=== PATIENT | male | born 1935 | race Caucasian/White ===

== ENCOUNTER 2017-08-26 11:42 | Outpatient (CLI) | payer MEDICARE, OTHER ==
--- NOTE | 2017-08-26 14:04 | CT Report ---
DATE OF SERVICE: 08/26/2017 CT OF THE ABDOMEN AND PELVIS WITHOUT CONTRAST: 08/26/2017 CLINICAL INDICATION: Pain. TECHNIQUE: Axial CT images of the abdomen and pelvis were obtained without oral or intravenous contrast, according to renal calculus protocol. No previous CT is available for comparison. FINDINGS: Limited evaluation of the lung bases is unremarkable. ABDOMEN: The kidneys demonstrate no evidence of nephrolithiasis or hydronephrosis. No hydroureter is seen. Multiple calcified granulomas are noted in the spleen and liver. No bowel dilatation, free gas, or free fluid is present. The pancreas and adrenal glands appear unremarkable. The gallbladder is not dilated. No abdominal adenopathy is appreciated. PELVIS: Postoperative changes of prostatectomy are present. The urinary bladder appears unremarkable. No distal hydroureter or ureterolithiasis is seen. Osseous structures demonstrate degenerative changes. IMPRESSION: NO EVIDENCE OF NEPHROLITHIASIS OR HYDRONEPHROSIS. In accordance with CT protocol optimization, one or more of the following dose reduction techniques were utilized for this exam: automated exposure control, adjustment of mA and/or KV based on patient size, or use of iterative reconstructive technique. TD: 08/26/2017 15:02
== END 2017-08-26 11:43 | disposition home or self-care (01) ==
LOC: DI 11:42
PROVIDERS: ATTEND Urology
DX: N20.0 Calculus of kidney (principal)
CPT/HCPCS: 74176

== ENCOUNTER 2017-12-10 14:17 | Outpatient (CLI) | payer MEDICARE, OTHER | END 2017-12-10 14:18 | disposition critical access hospital (66) | LOC: EMS 14:17 | PROVIDERS: ATTEND Surgery | DX: R53.1 Weakness (principal); R05 Cough; R41.0 Disorientation, unspecified; R50.9 Fever, unspecified | CPT/HCPCS: A0425; A0429 ==

== ENCOUNTER 2017-12-10 14:40 | Inpatient (IN) | payer MEDICARE, OTHER ==
[2017-12-10] MEDS ORDERED: SODIUM CHLORIDE 0.9% 1,000 ML IV ONE (14:51)
--- NOTE | 2017-12-10 14:53 | ED Physician Documentation ---
History of Present Illness - Stated complaint Stated Complaint: COUGH/WEAK - Chief complaint Chief Complaint: General - History obtained from History obtained from: Patient, EMS - History of Present Illness Timing: Other (82-year-old gentleman with potential history of seizures on Dilantin, but this is nebulous per his history. He has had a week's worth of cough, but since last night he could not sleep at all Because he was spitting out sputum all night and this morning became generally weak and could not ambulate. He denies any pain except for chronic back pain and he had some heel pain on the right yesterday which is gone. He denies fevers or chills, he is just weak. There is no shortness of breath or abdominal pain with this. No headache.) Review of Systems Ten Systems: 10 systems reviewed and negative Constitutional: reports: Fatigue. denies: Fever, Chills Nose: denies: Rhinorrhea / runny nose Cardiac: denies: Chest pain / pressure Respiratory: reports: Cough. denies: Dyspnea GI: denies: Abdominal Pain PD PAST MEDICAL HISTORY - Past Medical History Cardiovascular: None Respiratory: Sleep apnea, Other Endocrine/Autoimmune: None GI: GERD : Benign prostate hypertrophy, Frequency, Other HEENT: Chronic hearing loss, Other Psych: None Musculoskeletal: Osteoarthritis, Scoliosis, Chronic back pain Derm: Eczema - Past Surgical History General: Appendectomy, Colonoscopy Ortho: Other HEENT: Tonsil/Adenoidectomy - Present Medications Home Medications: Ambulatory Orders Medication Instructions Recorded Confirmed Acetaminophen 650 mg PO Q6H PRN 01/16/15 01/19/15 Aspirin [Aspir 81] 325 mg PO DAILY 01/16/15 01/16/15 Calcium Carbonate/Vitamin D3 1 tab PO BID 01/16/15 01/19/15 [Calcium 500 + Vit D 200 Tablet] Omeprazole 20 mg PO BID 01/16/15 01/19/15 Phenytoin [Dilantin] 100 mg PO DAILY 01/16/15 01/19/15 Bisacodyl [Dulcolax] 12/10/17 Trospium Chloride 12/10/17 - Allergies Allergies/Adverse Reactions: Allergies Allergy/AdvReac Type Severity Reaction Status Date / Time alendronate sodium Allergy Severe Rash Verified 01/06/16 15:15 [From Fosamax] Penicillins Allergy Intermediate Rash/Itchin Verified 01/06/16 15:15 g hydrocodone AdvReac Intermediate Nausea Verified 01/06/16 15:15 - Social History Does the pt smoke?: No Smoking Status: Never smoker Does the pt drink ETOH?: No Does the pt have substance abuse?: No - Family History Family history: reports: Non contributory - Immunizations Immunizations are current?: Yes PD ED PE NORMAL - Vitals Vital signs reviewed: Yes - General General: Alert and oriented X 3, No acute distress, Other (He is very weak, he is at least a 1 person assist to sit him up and listen to his lungs.) - HEENT HEENT: PERRL, EOMI, Other (Poor dentition, dry mucous membranes) - Neck Neck: Supple, no meningeal sign, No bony TTP - Cardiac Cardiac: RRR, No murmur - Respiratory Respiratory: No respiratory distress, Clear bilaterally - Abdomen Abdomen: Normal bowel sounds, Soft, Non tender - Derm Derm: Normal color, Warm and dry - Extremities Extremities: No edema, No calf tenderness / cord - Neuro Neuro: Alert and oriented X 3, Normal speech Eye Opening: Spontaneous Motor: Obeys Commands Verbal: Oriented GCS Score: 15 Results - Vitals Vitals: Vital Signs - 24 hr 12/10/17 12/10/17 14:43 16:20 Temperature 37.2 C 37.0 C Heart Rate 88 79 Respiratory 18 15 Rate Blood Pressure 139/69 H 117/64 O2 Saturation 99 94 Oxygen O2 Source Room air - EKG (time done) 1523 Rate: Rate (enter#) (80) Rhythm: NSR [place]: Normal Intervals: Normal [place] QRS: LVH Ischemia: Normal ST segments Computer interpretation: Agree with computer - Labs Labs: Laboratory Tests 12/10/17 12/10/17 12/10/17 15:02 15:02 15:02 WBC 17.6 H RBC 4.43 L Hgb 12.3 L Hct 38.0 L MCV 85.8 MCH 27.8 MCHC 32.4 RDW 15.7 H Plt Count 170 MPV 7.7 Neut # Not Reportable Lymph # Not Reportable Pepin # Not Reportable Eos # Not Reportable Baso # Not Reportable Absolute Nucleated RBC Not Reportable Total Counted 100 Band Neuts % (Manual) 17 H Abnorm Lymph % (Manual) 0 Nucleated RBC % Not Reportable Neutrophils # (Manual) 16.2 H Lymphocytes # (Manual) 1.2 L Monocytes # (Manual) 0.2 Eosinophils # (Manual) 0.0 Basophils # (Manual) 0.0 Differential Comment MANUAL DIFFERENTIAL Manual Slide Review Indicated WBC Morphology NORMAL APPEARANCE Platelet Estimate NORMAL (130-450,000) Platelet Morphology NORMAL APPEARANCE RBC Morph Micro Appear 1+ POLYCHROMASIA Sodium 139 Potassium 3.3 L Chloride 102 Carbon Dioxide 27 Anion Gap 10.0 BUN 15 Creatinine 1.0 Estimated GFR (MDRD) 72 L Glucose 112 H Lactic Acid Calcium 8.4 L Magnesium 1.9 Total Bilirubin 0.8 AST 59 H ALT 18 Alkaline Phosphatase 60 Troponin I 0.04 Total Protein 6.2 L Albumin 3.7 Globulin 2.5 Albumin/Globulin Ratio 1.5 Lipase 20 L Urine Color Urine Clarity Urine pH Ur Specific Ward Urine Protein Urine Glucose (UA) Urine Ketones Urine Occult Blood Urine Nitrite Urine Bilirubin Urine Urobilinogen Ur Leukocyte Esterase Urine RBC Urine WBC Ur Squamous Epith Cells Amorphous Sediment Urine Bacteria Ur Microscopic Review Urine Culture Comments Phenytoin < 2.5 Influenza A (Rapid) Influenza B (Rapid) 12/10/17 12/10/17 12/10/17 15:07 15:10 16:13 WBC RBC Hgb Hct MCV MCH MCHC RDW Plt Count MPV Neut # Lymph # Pepin # Eos # Baso # Absolute Nucleated RBC Total Counted Band Neuts % (Manual) Abnorm Lymph % (Manual) Nucleated RBC % Neutrophils # (Manual) Lymphocytes # (Manual) Monocytes # (Manual) Eosinophils # (Manual) Basophils # (Manual) Differential Comment Manual Slide Review WBC Morphology Platelet Estimate Platelet Morphology RBC Morph Micro Appear Sodium Potassium Chloride Carbon Dioxide Anion Gap BUN Creatinine Estimated GFR (MDRD) Glucose Lactic Acid 2.1 Calcium Magnesium Total Bilirubin AST ALT Alkaline Phosphatase Troponin I Total Protein Albumin Globulin Albumin/Globulin Ratio Lipase Urine Color YELLOW Urine Clarity CLEAR Urine pH 7.5 Ur Specific Ward 1.010 Urine Protein TRACE Urine Glucose (UA) NEGATIVE Urine Ketones 15 H Urine Occult Blood SMALL H Urine Nitrite NEGATIVE Urine Bilirubin NEGATIVE Urine Urobilinogen 0.2 (NORMAL) Ur Leukocyte Esterase NEGATIVE Urine RBC 0-5 Urine WBC 0-3 Ur Squamous Epith Cells RARE Squamous Amorphous Sediment Moderate Urine Bacteria None Seen Ur Microscopic Review INDICATED Urine Culture Comments NOT INDICATED Phenytoin Influenza A (Rapid) Negative Influenza B (Rapid) Negative - Rads (name of study) 2v chest Radiology: EMP read contemporaneously (LLL PNA) PD MEDICAL DECISION MAKING - ED course ED course: 82-year-old gentleman with an acute illness marked by cough and sputum production and significant weakness. Lab work is notable for leukocytosis with bandemia and he has a left lower lobe pneumonia which is treated with Rocephin and Zithromax after blood cultures. His lactate is high normal but it is normal. Spoke with Dr. Zhou for admission at 5:04 PM. Departure - Departure Disposition: [facility] DC/Xfer Clinical Impression: Pneumonia Qualifiers: Pneumonia type: due to unspecified organism Laterality: left Lung location: lower lobe of lung Qualified Code(s): J18.1 - Lobar pneumonia, unspecified organism Condition: Stable
[2017-12-10 15:23] LABS: BASOPHILS % (AUTO) 0.3 %; HGB - HEMOGLOBIN 12.3 g/dL (14.0-18.0); LYMPHOCYTES % (AUTO) 3.1 %; MEAN CORPUSCULAR HEMOGLOBIN 27.8 pg (27.0-31.0); MEAN CORPUSCULAR HGB CONC 32.4 g/dL (32.0-36.0); MEAN CORPUSCULAR VOLUME 85.8 fL (80.0-94.0); MEAN PLATELET VOLUME 7.7 fL (7.4-11.4); MONOCYTES % (AUTO) 6.4 %; NEUTROPHILS % (AUTO) 90.2 %; PLT - PLATELET COUNT 170 10^3/uL (130-450); RED BLOOD COUNT 4.43 10^6/uL (4.70-6.10); RED CELL DISTRIBUTION WIDTH 15.7 % (12.0-15.0); WHITE BLOOD COUNT 17.6 x10^3/uL (4.8-10.8)
[2017-12-10 15:25] LABS: ABNORMAL LYMPHS % (MANUAL) 0 %
[2017-12-10 15:33] LABS: ALBUMIN 3.7 g/dL (3.2-5.5); ALBUMIN/GLOBULIN RATIO 1.5 (1.0-2.2); ALKALINE PHOSPHATASE 60 IU/L (42-121); ALT ALANINE AMINOTRANSFERASE 18 IU/L (10-60); AST ASPARTATE AMINOTRANSFERASE 59 IU/L (10-42); BILIRUBIN,TOTAL 0.8 mg/dL (0.2-1.0); BUN - BLOOD UREA NITROGEN 15 mg/dL (6-20); CALCIUM 8.4 mg/dL (8.5-10.3); CARBON DIOXIDE - CO2 27 mmol/L (21-32); CHLORIDE 102 mmol/L (101-111); GFR - MDRD 72 (>89); GLUCOSE 112 mg/dL (70-100); LIPASE 20 U/L (22-51); MAGNESIUM 1.9 mg/dL (1.7-2.8); SODIUM 139 mmol/L (135-145); TOTAL PROTEIN 6.2 g/dL (6.7-8.2)
[2017-12-10 15:44] LABS: BAND NEUTROPHILS % (MANUAL) 17 %; DIFFERENTIAL COMMENT MANUAL DIFFERENTIAL; LYMPHOCYTES # (MANUAL) 1.2 10^3/uL (1.5-3.5); LYMPHOCYTES % (MANUAL) 7 %; MONOCYTES # (MANUAL) 0.2 10^3/uL (0.0-1.0); NEUTROPHILS # (MANUAL) 16.2 10^3/uL (1.5-6.6); NEUTROPHILS % (MANUAL) 75 %; PLATELET ESTIMATE, MANUAL NORMAL (130-450,000) (NORMAL); PLATELET MORPHOLOGY NORMAL APPEARANCE (NORMAL); RBC MORPHOLOGY (MULTIPLE) 1+ POLYCHROMASIA (NORMAL)
[2017-12-10 15:59] LABS: PHENYTOIN (DILANTIN) < 2.5 ug/mL
[2017-12-10 16:24] LABS: BILIRUBIN,URINE NEGATIVE (NEGATIVE); GLUCOSE, URINE (UA) NEGATIVE (NEGATIVE); KETONES,URINE (UA) 15 mg/dL (NEGATIVE); LEUKOCYTE ESTERASE, URINE NEGATIVE (NEGATIVE); NITRITE,URINE NEGATIVE (NEGATIVE); OCCULT BLOOD,URINE SMALL (NEGATIVE); PH,URINE 7.5 PH (5.0-7.5); PROTEIN,URINE TRACE mg/dL (NEGATIVE); UROBILINOGEN,URINE 0.2 (NORMAL) E.U./dL (NORMAL)
[2017-12-10 16:27] LABS: CLARITY,URINE CLEAR (CLEAR)
[2017-12-10 16:40] LABS: BACTERIA,URINE None Seen /HPF (None Seen); RBC,URINE 0-5 /HPF (0-5); SQUAMOUS EPITHELIAL CELL,UR RARE Squamous (<= Few)
[2017-12-10 16:41] LABS: AMORPHOUS SEDIMENT,UR Moderate /LPF
--- NOTE | 2017-12-10 16:47 | XRAY Report ---
EXAM: CHEST RADIOGRAPHY EXAM DATE: 12/10/2017 04:30 PM. CLINICAL HISTORY: Cough, sputum. COMPARISON: 08/26/2017. TECHNIQUE: 2 views. FINDINGS: Lungs/Pleura: Left lower lobe consolidation. Lungs are otherwise clear. Mildly elevated right hemidia phragm. No pleural effusion or pneumothorax. Mediastinum: Heart and mediastinal contours are within normal limits. Other: None. IMPRESSION: Left lower lobe consolidation is most consistent with pneumonia. Consider radiographic fo llow-up after appropriate treatment. [facility] Referring Provider Line: [phone] SITE ID: [id number]
--- NOTE | 2017-12-10 16:47 | XRAY Preliminary Report ---
Exam: XR CHEST 2 VIEW X-RAY IMPRESSION: Left lower lobe consolidation is most consistent with pneumonia. Consider radiographic fo llow-up after appropriate treatment. [facility] SITE ID: [id number]
[2017-12-10] MEDS ORDERED: AZITHROMYCIN INJ 500 MG in SODIUM CHLORIDE 0.9% 250 ML IV STA (16:57)
[2017-12-10] MEDS ORDERED: cefTRIAXone 1 GM in SODIUM CHLORIDE 0.9% MINIBAG 100 ML IV STA (16:57)
[2017-12-10] MEDS ORDERED: ALBUTEROL NEB 2.5 MG/3 ML INH PRN (19:00)
--- NOTE | 2017-12-10 19:24 | HISTORY & PHYSICAL EXAMINATION ---
Chief Complaint - Chief Complaint Chief Complaint: cough, sob with severe weakness that fell on floor today, couldn't get up History of Present Illness - Admitted From Admitted From:: ER/Home via EMS - History Obtained From Records Reviewed: ER History obtained from: Dr. Galvan and patient, not here Exam Limitations: fatigue and deafness - History of Present Illness HPI Comment/Other: He tells me that he leads a pretty independent life. He works out in the yard, cooks for himself. Although he has been to his for close to 60 years they are not close. He loves her but does not like her very much. They live together in the same house but do not see very much of each other. He still drives. Denies any chronic lung problems or heart problems. He went to bed Thursday night, and all night long realized that he was producing a lot of phlegm. Was coughing heavily. Did not have the energy to get out of bed. Stayed awake all night long. Prior to Thursday he says he did not feel sick. He did not have fever, chills, sore throat, runny nose. He started realizing that it was getting harder and harder to even roll over. He felt weak, and could not sleep. He finally got up in the licensed midwife hours to go to the bathroom and slid to the floor. He did not fall he just felt like he did not have any strength. He was incontinent of stool, incontinent of urine. And again, because he sleeps in a separate bedroom from his , lay on the floor for 2-3 hours until he was able to get her attention. She called the ambulance and he was brought into the hospital. He was evaluated by Dr. Galvan and found to have a low-grade fever, elevated white cell count, a left lung pneumonia. 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 They said he had a seizure, and when he got to the hospital they told him he had a small stroke. This was in the 1970s) Endocrine/Autoimmune: reports: None GI: reports: GERD : reports: Benign prostate hypertrophy, Incontinence, Frequency, Other ( prostate cancer with prostatectomy. Use to see Dr. Quan then saw Dr. Kang in [place]. But Dr. Feliciano closed her office there and is now only out of [place] and he won't go that far. So it's been a while since he saw a Urologist.) HEENT: reports: Chronic hearing loss, Other (corrective lenses) Psych: reports: None Musculoskeletal: reports: Osteoarthritis, Scoliosis, Chronic back pain (MRI 2013 with facet arthropathy, disc disease) Derm: reports: Eczema MRSA Hx?: No - Past Surgical History General: reports: Appendectomy, Colonoscopy, Other (right inguinal hernia repair 12/2014) Ortho: reports: Carpal Tunnel surgery, Other HEENT: reports: Tonsil/Adenoidectomy - Family & Social History Family History Comment/Other: Dad in his 80s of old age. Mom at 88 of old age. One sister of pneumonia. One brother is 2 years younger than him and not healthy. He cannot say why he is not healthy just that is not healthy. One daughter who is healthy and has no problems with high blood pressure, diabetes, heart, thyroid or cancer. Living arrangement: At home Living Situation: With spouse/s.o. Social History Notes: He was born in [place]. From [place] he enrolled in air traffic control school with the [employer] and was then [place]. From there he went to [place] and works in the [employer] for a year. Went back to [place] then to [place] where he met his in 1962 Reenrolled in the , this time [employer]. Get out of the [employer] in May and when he retired they came to [facility]. He never smoked. Rarely drank. Never did recreational substance abuse. - Substance History Use: Uses substance without health or social issues: NONE Abuse: Recurrent use of substance despite neg consequences: NONE Dependence: Experiences withdrawal or developed tolerances: NONE - POLST Patient has POLST: No POLST Status: Full Code Meds/Allgy - Home Medications Home Medications: Ambulatory Orders Medication Instructions Recorded Confirmed Acetaminophen 650 mg PO Q6H PRN 01/16/15 12/10/17 Calcium Carbonate/Vitamin D3 1 tab PO BID 01/16/15 12/10/17 [Calcium 500 + Vit D 200 Tablet] Omeprazole 20 mg PO BID 01/16/15 12/10/17 Phenytoin [Dilantin] 100 mg PO DAILY 01/16/15 12/10/17 Aspirin EC [Ecotrin] 325 mg PO DAILY 12/10/17 12/10/17 Bisacodyl [Dulcolax] 5 mg PO DAILY PRN 12/10/17 12/10/17 Fluticasone [Flonase] 2 sprays GIO DAILY PRN 12/10/17 12/10/17 Loratadine [Claritin] 10 mg PO DAILY 12/10/17 12/10/17 Trospium Chloride 20 mg PO BID 12/10/17 12/10/17 - Allergies Allergies/Adverse Reactions: Allergies Allergy/AdvReac Type Severity Reaction Status Date / Time alendronate sodium Allergy Severe Rash Verified 01/06/16 15:15 [From Fosamax] Penicillins Allergy Intermediate Rash/Itchin Verified 01/06/16 15:15 g hydrocodone AdvReac Intermediate Nausea Verified 01/06/16 15:15 Review of Systems - Constitutional Constitutional: reports: Fatigue (just in the last day), Weakness, Poor appetite - Eyes Eyes: reports: Corrective lenses. denies: Pain, Irritation, Amaurosis - Ears, Nose & Throat Ears, Nose & Throat: reports: Hearing loss. denies: Tinnitus, Vertigo, Nasal pain, Nasal obstruction, Nasal congestion - Cardiovascular Cariovascular: denies: Irregular heart rate, Palpitations, Chest pain, Edema, Lightheadedness, Syncope - Respiratory Respiratory: reports: Cough (only since last noc), Sputum production (produces some every day, a lot, but really bad last night). denies: SOB at rest, SOB with exertion - Gastrointestinal Gastrointestinal: denies: Abdominal pain, Abdominal distention, Constipation, Diarrhea, Change in bowel habits, Rectal bleeding - Genitourinary Genitourinary: reports: Frequency, Urgency, Incontinence, Nocturia. denies: Hematuria, Flank pain, Urethral discharge, Sexual dysfunction - Musculoskeletal Musculoskeletal: reports: Back pain, Stiffness, Limited range of motion (back), Joint pain (in the morning he's stiff). denies: Muscle pain, Muscle aches, Muscle weakness, Gout - Neurological Neurological: reports: General weakness. denies: Focal weakness, Headache, Dizziness, Memory problems - Psychiatric Psychiatric: denies: Depression, Anxiety, Suicidal, Hallucinations - Endocrine Endocrine: denies: Polyuria, Polydypsia, Polyphagia, Intolerance to cold - Hematologic/Lymphatic Hematologic/Lymphatic: denies: Anemia, Bruising, Petechiae Exam - Vital Signs Reviewed Vital Signs: Yes Vital Signs: Vital Signs x48h Temp Pulse Pulse Resp BP BP Pulse Ox 12/10/17 19:08 37.8 C H 83 20 133/55 H 97 12/10/17 18:25 82 24 119/66 96 12/10/17 17:38 37.2 C 79 20 124/52 L 96 - Physical Exam General Appearance: positive: No acute distress, Alert, Other (gaunt, thin, deaf elderly male so weak has to rely on aides to rotate him in bed. Very circumferential historian. Takes a while for him to answer a question and will sometimes go back in history to being 17 and move forward.) Eyes Bilateral: positive: PERRL, EOMI ENT: positive: Dry mucous membranes, Other (partially lost his lower teeth) Neck: positive: No JVD, Lymphadenopathy (R), Lymphadenopathy (L). negative: Carotid bruit Respiratory: positive: Chest non-tender, No respiratory distress, Rhonchi (left lung), Other (dull left lung at base and does have egophony). negative: Wheezes , Rales Cardiovascular: positive: Regular rate & rhythm, Systolic murmur. negative: Gallop/S4, Friction rub Peripheral Pulses: positive: 2+ Abdomen: positive: Non-tender, No organomegaly, Nml bowel sounds, No distention Skin: positive: Warm, Dry, Other (all along his lower back and above his buttocks he has a ring of pink that goes across the spine. [place] band is like a belt. Nonblanchin, warm. It is where his urine soaked pants touched him as he lay in his bed, then the floor and then the ER until he came to us. Incontinent of both urine and stool . One small pink aea of pressure over his lateral hip trochanteric area. His right cheek has lost superficial skin about the 2.5 cm.) Extremities: positive: Full ROM, Other (gaunt) Neurologic/Psychiatric: positive: Oriented x3, Motor nml, Weakness (generalized and severe), Other (tangential thought process and very circumferential mechanic driver). negative: CN's nml (2-12) (very deaf) Conclusion/Plan - Problem List (1) Community acquired pneumonia Conclusion/Plan: odd presentation of sudden worseing of phlegm production over one night w cough , weakness so severe couldn't get out of bed. he doesn't smoke. No previous lung disease. No antecedent illness other than a chronic production of phlegm. Plan: - admit to inpatient status for treatment with IV antibiotics in the form of Rocephin and azithromycin -adjust antibiotics on the basis of sputum culture and blood culture -Provide oxygen as needed. Right now he is not hypoxic -Check daily CBC -Because this history is of sudden, check CT of the chest in the next 1-2 days to make sure it is only pneumonia I am dealing with and not some neoplasm with postobstructive pneumonia Qualifiers: Laterality: left Lung location: lower lobe of lung Qualified Code(s): J18.1 - Lobar pneumonia, unspecified organism (2) History of prostate cancer Conclusion/Plan: no followup for 1-2 years. Plan: check PSA (3) Hypokalemia Conclusion/Plan: supplement po - Lab Results Fish Bones: 12/11/17 05:20 12/11/17 05:20 - Diagnostic Imaging Results Diagnostic Imaging Results: positive: Final report reviewed Core Measures - Anticipated LOS I expect patient to be DC'd or transferred within 96 hours.: Yes - DVT/VTE - Prophylaxis VTE/DVT Device ordered at admit?: Yes
[2017-12-10] MEDS: SODIUM CHLORIDE FLUSH 0.9% 10 ML SYRINGE IVP PRN (19:27)
[2017-12-10] MEDS: SODIUM CHLORIDE 0.9% 1,000 ML IV SCH (19:27)
[2017-12-10] MEDS: CHOLECALCIFEROL 400 UNIT TABLET PO SCH (20:05)
[2017-12-10] MEDS: POTASSIUM CHLORIDE 20 MEQ/15 ML UDC PO SCH (20:05)
[2017-12-10] MEDS: CALCIUM CARBONATE CHEW 500 MG TABLET PO SCH (20:05)
[2017-12-10] MEDS ORDERED: MIN OIL/DIMETHICON/COCONUT OIL 92 GM TUBE TOP PRN (22:29)
[2017-12-11] MEDS: SODIUM CHLORIDE FLUSH 0.9% 10 ML SYRINGE IVP SCH ×3 (04:31→18:18)
[2017-12-11] MEDS: SODIUM CHLORIDE 0.9% 1,000 ML IV SCH ×2 (05:20→14:20)
[2017-12-11 05:53] LABS: BASOPHILS % (AUTO) 0.2 %; HGB - HEMOGLOBIN 10.5 g/dL (14.0-18.0); LYMPHOCYTES # (AUTO) 1.1 10^3/uL (1.5-3.5); LYMPHOCYTES % (AUTO) 8.3 %; MEAN CORPUSCULAR HGB CONC 31.7 g/dL (32.0-36.0); MEAN CORPUSCULAR VOLUME 88.3 fL (80.0-94.0); MEAN PLATELET VOLUME 7.9 fL (7.4-11.4); MONOCYTES # (AUTO) 0.6 10^3/uL (0.0-1.0); MONOCYTES % (AUTO) 4.9 %; NEUTROPHILS # (AUTO) 11.2 10^3/uL (1.5-6.6); NEUTROPHILS % (AUTO) 86.6 %; PLT - PLATELET COUNT 141 10^3/uL (130-450); RED BLOOD COUNT 3.76 10^6/uL (4.70-6.10); RED CELL DISTRIBUTION WIDTH 15.7 % (12.0-15.0)
[2017-12-11 05:59] LABS: CALCIUM 7.6 mg/dL (8.5-10.3); CREATININE 0.7 mg/dL (0.6-1.2)
[2017-12-11] MEDS ORDERED: FLUTICASONE NASAL SPRAY NAS PRN (09:00)
[2017-12-11] MEDS: SACCHAROMYCES BOULARDII 250 MG CAPSULE PO SCH ×2 (09:19→18:17)
[2017-12-11] MEDS: POTASSIUM CHLORIDE 20 MEQ/15 ML UDC PO SCH (09:19)
[2017-12-11] MEDS: PHENYTOIN ER 100 MG CAPSULE PO SCH (09:20)
[2017-12-11] MEDS: CHOLECALCIFEROL 400 UNIT TABLET PO SCH ×2 (09:20→21:11)
[2017-12-11] MEDS: CALCIUM CARBONATE CHEW 500 MG TABLET PO SCH ×2 (09:20→21:11)
[2017-12-11] MEDS: ASPIRIN EC 325 MG TABLET PO SCH (09:20)
[2017-12-11] MEDS: POLYETHYLENE GLYCOL 3350 17 GM PACKET PO SCH (09:21)
--- NOTE | 2017-12-11 15:49 | PROVIDER PROGRESS NOTE ---
Subjective - Prog Note Date Prog Note Date: 12/11/17 Prog Note Time: 15:46 - Subjective Pt reports feeling: Improved Subjective: he feels so much better. able to get out of bed and sit in chair without falling over. ate his food. cough is not present phlegm production has slowed down. no fever overnight O2 requiremnt is stable. Current Medications - Current Medications Current Medications: Active Medications Albuterol () 2.5 mg INH RTQ4H PRN PRN Reason: Wheezing Aspirin (Ecotrin) 325 mg PO DAILY [facility] Last Admin: 12/11/17 09:20 Dose: 325 mg Calcium Carbonate/Glycine (Tums) 500 mg PO BID [facility] Last Admin: 12/11/17 09:20 Dose: 500 mg Cholecalciferol (Vitamin D3) 400 unit PO BID [facility] Last Admin: 12/11/17 09:20 Dose: 400 unit Fluticasone Propionate (Flonase) 2 sprays GIO DAILY PRN PRN Reason: ALLERGIC RHINITIS Azithromycin 500 mg/ Sodium (Chloride) 250 mls @ 250 mls/hr IV Q24H [facility] Ceftriaxone Sodium 2 gm/ (Sodium Chloride) 100 mls @ 200 mls/hr IV Q24H [facility] Sodium Chloride (Normal Saline 0.9%) 1,000 mls @ 100 mls/hr IV .Q10H [facility] Stop: 12/11/17 23:59 Last Admin: 12/11/17 14:20 Dose: 100 mls/hr Mineral Oil (Cavilon) 1 applic TOP PRN PRN PRN Reason: Skin Care Phenytoin Sodium (Dilantin) 100 mg PO DAILY [facility] Last Admin: 12/11/17 09:20 Dose: 100 mg Polyethylene Glycol (Miralax) 17 gm PO DAILY [facility] Last Admin: 12/11/17 09:21 Dose: Not Given Potassium Chloride () 20 meq PO DAILYWM [facility] Last Admin: 12/11/17 09:19 Dose: 20 meq Saccharomyces Boulardii (Florastor) 250 mg PO BIDWM [facility] Last Admin: 12/11/17 09:19 Dose: 250 mg Sodium Chloride (Normal Saline Flush 0.9%) 10 ml IVP PRN PRN PRN Reason: NEEDED PER PROVIDER ORDERS Last Admin: 12/10/17 19:27 Dose: 10 ml Sodium Chloride (Normal Saline Flush 0.9%) 10 ml IVP 0100,0900,1700 [facility] Last Admin: 12/11/17 13:16 Dose: Not Given Acetaminophen 650 mg PO Q6H PRN 01/16/15 Calcium Carbonate/Vitamin D3 [Calcium 500 + Vit D 200 Tablet] 1 tab PO BID 01/16 Omeprazole 20 mg PO BID 01/16/15 Phenytoin [Dilantin] 100 mg PO DAILY 01/16/15 Aspirin EC [Ecotrin] 325 mg PO DAILY 12/10/17 Bisacodyl [Dulcolax] 5 mg PO DAILY PRN 12/10/17 Fluticasone [Flonase] 2 sprays GIO DAILY PRN 12/10/17 Loratadine [Claritin] 10 mg PO DAILY 12/10/17 Trospium Chloride 20 mg PO BID 12/10/17 Objective - Vital Signs/Intake & Output Reviewed Vital Signs: Yes Vital Signs: Vital Signs x48h Temp Pulse Pulse Resp BP Pulse Ox 12/11/17 15:41 37.2 C 74 18 148/69 H 98 12/11/17 10:50 73 22 Intake & Output: Intake & Output 12/08/17 12/09/17 12/10/17 12/11/17 23:59 23:59 23:59 23:59 Intake Total 1690 2248.333 Output Total 200 1150 Balance 1490 1098.333 - Objective General Appearance: positive: No acute distress, Alert, Other (thin gaunt male who looks stated age, watching "the rifleman" on TV with great interest, sitting up in chair.) Eyes Bilateral: positive: PERRL, EOMI, Other (glasses, ?facial droop that he says is chronic for him) ENT: positive: Other (poor dentition) Neck: positive: No JVD. negative: Stiff neck, Carotid bruit Respiratory: positive: Chest non-tender, No respiratory distress, Rhonchi (left mid lung), Other (dull left lung base). negative: Wheezes, Rales Cardiovascular: positive: Regular rate & rhythm, Systolic murmur. 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 ), Motor nml, Weakness (stil present but better than last night.) - Lab Results Fish Bones: 12/11/17 05:20 12/11/17 05:20 Other Labs: Lab Results x24hrs 12/11/17 12/11/17 Range/Units 05:20 05:20 WBC 13.0 H (4.8-10.8) x10^3/uL RBC 3.76 L (4.70-6.10) 10^6/uL Hgb 10.5 L (14.0-18.0) g/dL Hct 33.2 L (42.0-52.0) % MCV 88.3 (80.0-94.0) fL MCH 28.0 (27.0-31.0) pg MCHC 31.7 L (32.0-36.0) g/dL RDW 15.7 H (12.0-15.0) % Plt Count 141 (130-450) 10^3/uL MPV 7.9 (7.4-11.4) fL Neut # 11.2 H (1.5-6.6) 10^3/uL Lymph # 1.1 L (1.5-3.5) 10^3/uL Reeves # 0.6 (0.0-1.0) 10^3/uL Eos # 0.0 (0.0-0.7) 10^3/uL Baso # 0.0 (0.0-0.1) 10^3/uL Absolute Nucleated RBC 0.01 x10^3/uL Nucleated RBC % 0.0 /100WBC Sodium 139 (135-145) mmol/L Potassium 3.4 L (3.5-5.0) mmol/L Chloride 111 (101-111) mmol/L Carbon Dioxide 23 (21-32) mmol/L Anion Gap 5.0 L (6-13) BUN 12 (6-20) mg/dL Creatinine 0.7 (0.6-1.2) mg/dL Estimated GFR (MDRD) 108 (>89) Glucose 95 (70-100) mg/dL Calcium 7.6 L (8.5-10.3) mg/dL ABX Reporting Has patient been on IV antibiotics over the past 48 hours?: Yes Assessment/Plan - Problem List (1) Community acquired pneumonia Impression: odd presentation of sudden worseing of phlegm production over one night w cough , weakness so severe couldn't get out of bed. he doesn't smoke. No previous lung disease. No antecedent illness other than a chronic production of phlegm. Plan: - admitted to inpatient status for treatment with IV antibiotics in the form of Rocephin and azithromycin, Day #2 -adjust antibiotics on the basis of sputum culture and blood culture. Only sputum gram stain available today and blood culture negative at 24 hours. -Provide oxygen as needed. Has not been hypoxic. -Check daily CBC. He's gone from 17.6 to 13 today so improving. -Because this history is of sudden, check CT of the chest in the next 1-2 days to make sure it is only pneumonia I am dealing with and not some neoplasm with postobstructive pneumonia Qualifiers: Laterality: left Lung location: lower lobe of lung Qualified Code(s): J18.1 - Lobar pneumonia, unspecified organism (2) History of prostate cancer Conclusion/Plan: no followup for 1-2 years. Plan: check PSA (3) Hypokalemia Conclusion/Plan: supplement po. Still needed.
[2017-12-11] MEDS: cefTRIAXone 2 GM in SODIUM CHLORIDE 0.9% MINIBAG 100 ML IV SCH (16:55)
[2017-12-11] MEDS: AZITHROMYCIN INJ 500 MG in SODIUM CHLORIDE 0.9% 250 ML IV SCH (18:17)
[2017-12-12] MEDS: SODIUM CHLORIDE FLUSH 0.9% 10 ML SYRINGE IVP SCH ×3 (00:17→18:11)
[2017-12-12 06:58] LABS: BASOPHILS # (AUTO) 0.1 10^3/uL (0.0-0.1); BASOPHILS % (AUTO) 0.7 %; EOSINOPHILS # (AUTO) 0.1 10^3/uL (0.0-0.7); EOSINOPHILS % (AUTO) 0.7 %; LYMPHOCYTES % (AUTO) 13.1 %; MEAN CORPUSCULAR HGB CONC 32.3 g/dL (32.0-36.0); MEAN CORPUSCULAR VOLUME 86.7 fL (80.0-94.0); MEAN PLATELET VOLUME 8.1 fL (7.4-11.4); MONOCYTES # (AUTO) 0.3 10^3/uL (0.0-1.0); MONOCYTES % (AUTO) 4.1 %; NEUTROPHILS # (AUTO) 6.3 10^3/uL (1.5-6.6); NEUTROPHILS % (AUTO) 81.4 %; PLT - PLATELET COUNT 138 10^3/uL (130-450); RED BLOOD COUNT 3.93 10^6/uL (4.70-6.10); RED CELL DISTRIBUTION WIDTH 15.2 % (12.0-15.0); WHITE BLOOD COUNT 7.8 x10^3/uL (4.8-10.8)
[2017-12-12 07:08] LABS: CALCIUM 7.9 mg/dL (8.5-10.3); CREATININE 0.8 mg/dL (0.6-1.2)
[2017-12-12] MEDS: POLYETHYLENE GLYCOL 3350 17 GM PACKET PO SCH (09:11)
[2017-12-12] MEDS: SACCHAROMYCES BOULARDII 250 MG CAPSULE PO SCH ×2 (09:13→18:11)
[2017-12-12] MEDS: CHOLECALCIFEROL 400 UNIT TABLET PO SCH ×2 (09:13→22:13)
[2017-12-12] MEDS: POTASSIUM CHLORIDE 20 MEQ/15 ML UDC PO SCH (09:13)
[2017-12-12] MEDS: PHENYTOIN ER 100 MG CAPSULE PO SCH (09:13)
[2017-12-12] MEDS: ASPIRIN EC 325 MG TABLET PO SCH (09:14)
[2017-12-12] MEDS: POTASSIUM CHLORIDE 20 MEQ TABLET PO SCH ×2 (09:17→22:13)
[2017-12-12] MEDS: CALCIUM CARBONATE CHEW 500 MG TABLET PO SCH ×2 (09:17→22:14)
[2017-12-12 10:08] LABS: PSA FREE 0.01 ng/mL (0.16-2.81)
[2017-12-12 10:09] LABS: PSA TOTAL 0.36 ng/mL (0.000-2.000)
--- NOTE | 2017-12-12 11:02 | PROVIDER PROGRESS NOTE ---
Subjective - Prog Note Date Prog Note Date: 12/12/17 Prog Note Time: 11:00 - Subjective Pt reports feeling: Improved Subjective: he isn't coughing much. eating his breakfast. No parsons but just tired and weak. effort to get up to bathroom. Current Medications - Current Medications Current Medications: Active Medications Albuterol () 2.5 mg INH RTQ4H PRN PRN Reason: Wheezing Aspirin (Ecotrin) 325 mg PO DAILY [facility] Last Admin: 12/12/17 09:14 Dose: 325 mg Calcium Carbonate/Glycine (Tums) 500 mg PO BID [facility] Last Admin: 12/12/17 09:17 Dose: 500 mg Cholecalciferol (Vitamin D3) 400 unit PO BID [facility] Last Admin: 12/12/17 09:13 Dose: 400 unit Fluticasone Propionate (Flonase) 2 sprays GIO DAILY PRN PRN Reason: ALLERGIC RHINITIS Azithromycin 500 mg/ Sodium (Chloride) 250 mls @ 250 mls/hr IV Q24H [facility] Last Infusion: 12/11/17 19:21 Dose: Infused Ceftriaxone Sodium 2 gm/ (Sodium Chloride) 100 mls @ 200 mls/hr IV Q24H [facility] Last Infusion: 12/11/17 18:18 Dose: Infused Mineral Oil (Cavilon) 1 applic TOP PRN PRN PRN Reason: Skin Care Phenytoin Sodium (Dilantin) 100 mg PO DAILY [facility] Last Admin: 12/12/17 09:13 Dose: 100 mg Polyethylene Glycol (Miralax) 17 gm PO DAILY [facility] Last Admin: 12/12/17 09:11 Dose: 17 gm Potassium Chloride () 20 meq PO DAILYWM [facility] Last Admin: 12/12/17 09:13 Dose: 20 meq Potassium Chloride (K-Dur) 40 meq PO BID [facility] Stop: 12/12/17 21:01 Last Admin: 12/12/17 09:17 Dose: 40 meq Saccharomyces Boulardii (Florastor) 250 mg PO BIDWM [facility] Last Admin: 12/12/17 09:13 Dose: 250 mg Sodium Chloride (Normal Saline Flush 0.9%) 10 ml IVP PRN PRN PRN Reason: NEEDED PER PROVIDER ORDERS Last Admin: 12/10/17 19:27 Dose: 10 ml Sodium Chloride (Normal Saline Flush 0.9%) 10 ml IVP 0100,0900,1700 [facility] Last Admin: 12/12/17 09:17 Dose: 10 ml Acetaminophen 650 mg PO Q6H PRN 01/16/15 Calcium Carbonate/Vitamin D3 [Calcium 500 + Vit D 200 Tablet] 1 tab PO BID 01/16 Omeprazole 20 mg PO BID 01/16/15 Phenytoin [Dilantin] 100 mg PO DAILY 01/16/15 Aspirin EC [Ecotrin] 325 mg PO DAILY 12/10/17 Bisacodyl [Dulcolax] 5 mg PO DAILY PRN 12/10/17 Fluticasone [Flonase] 2 sprays GIO DAILY PRN 12/10/17 Loratadine [Claritin] 10 mg PO DAILY 12/10/17 Trospium Chloride 20 mg PO BID 12/10/17 Objective - Vital Signs/Intake & Output Reviewed Vital Signs: Yes Vital Signs: Vital Signs x48h Temp Pulse Resp BP Pulse Ox 12/12/17 07:45 36.5 C 63 18 151/79 H 96 Intake & Output: Intake & Output 12/09/17 12/10/17 12/11/17 12/12/17 23:59 23:59 23:59 23:59 Intake Total 1690 2838.333 1200 Output Total 200 1750 1325 Balance 1490 1088.333 -125 - Objective General Appearance: positive: No acute distress, Alert, Other (thin white male looks older than stated age, loquacious) Eyes Bilateral: positive: PERRL, EOMI ENT: positive: Pharynx nml, Other (bad teeth) Neck: positive: No JVD. negative: Stiff neck, Carotid bruit Respiratory: positive: Chest non-tender. negative: Wheezes, Rales, Rhonchi Cardiovascular: positive: Regular rate & rhythm, Systolic murmur. negative: Gallop/S4, Friction rub Abdomen: positive: Non-tender, No organomegaly, Nml bowel sounds, No distention Skin: positive: Warm, Dry Extremities: positive: Non-tender, No pedal edema Neurologic/Psychiatric: positive: Oriented x3, CN's nml (2-12), Motor nml, Facial droop (or at least facial asymmetry and without change from admit) - Lab Results Fish Bones: 12/12/17 06:35 12/12/17 06:35 Other Labs: Lab Results x24hrs 12/12/17 12/12/17 12/12/17 Range/Units 09:05 06:35 06:35 WBC 7.8 (4.8-10.8) x10^3/uL RBC 3.93 L (4.70-6.10) 10^6/uL Hgb 11.0 L (14.0-18.0) g/dL Hct 34.0 L (42.0-52.0) % MCV 86.7 (80.0-94.0) fL MCH 28.0 (27.0-31.0) pg MCHC 32.3 (32.0-36.0) g/dL RDW 15.2 H (12.0-15.0) % Plt Count 138 (130-450) 10^3/uL MPV 8.1 (7.4-11.4) fL Neut # 6.3 (1.5-6.6) 10^3/uL Lymph # 1.0 L (1.5-3.5) 10^3/uL Wirt # 0.3 (0.0-1.0) 10^3/uL Eos # 0.1 (0.0-0.7) 10^3/uL Baso # 0.1 (0.0-0.1) 10^3/uL Absolute Nucleated RBC 0.00 x10^3/uL Nucleated RBC % 0.0 /100WBC Sodium 136 (135-145) mmol/L Potassium 3.2 L (3.5-5.0) mmol/L Chloride 110 (101-111) mmol/L Carbon Dioxide 21 (21-32) mmol/L Anion Gap 5.0 L (6-13) BUN 13 (6-20) mg/dL Creatinine 0.8 (0.6-1.2) mg/dL Estimated GFR (MDRD) 93 (>89) Glucose 91 (70-100) mg/dL Calcium 7.9 L (8.5-10.3) mg/dL Prostate Specific Ag 0.360 (0.000-2.000) ng/mL Free PSA 0.010 L (0.16-2.81) ng/mL % Free PSA Calc 3 L (25-100) % ABX Reporting Has patient been on IV antibiotics over the past 48 hours?: Yes Assessment/Plan - Problem List (1) Community acquired pneumonia Impression: odd presentation of sudden worseing of phlegm production over one night w cough , weakness so severe couldn't get out of bed. he doesn't smoke. No previous lung disease. No antecedent illness other than a chronic production of phlegm. Plan: - admitted to inpatient status for treatment with IV antibiotics in the form of Rocephin and azithromycin, Day #3 -adjust antibiotics on the basis of sputum culture and blood culture. He grew out normal respiratory toi and norma. The latter will be seen as colonization and not infection. Blood culture negative at 48 hours. So no change in type of abx. I will transition to oral today now that WBC is normal. -Provide oxygen as needed. Has not been hypoxic. -Check daily CBC. He's gone from 17.6 to 13 and today 7 on his WBC. -Because this history is of sudden, check CT of the chest today to make sure it is only pneumonia I am dealing with and not some neoplasm with postobstructive pneumonia - he's weak and needs help, order PT eval and I'll call his to see if she can take care of him when he returns home. She didn't come in yesterday. He reports, again, that they lead separate lives and he's not sure if she will help. Qualifiers: Laterality: left Lung location: lower lobe of lung Qualified Code(s): J18.1 - Lobar pneumonia, unspecified organism (2) History of prostate cancer Conclusion/Plan: no followup for 1-2 years. Plan: checked PSA and it's 0.36 today (3) Hypokalemia Conclusion/Plan: supplement po. Still needed.Give extra dose of 20 meq on top of his usual 10 meq
[2017-12-12] MEDS: cefTRIAXone 2 GM in SODIUM CHLORIDE 0.9% MINIBAG 100 ML IV SCH (15:56)
[2017-12-12] MEDS: SODIUM CHLORIDE FLUSH 0.9% 10 ML SYRINGE IVP PRN (15:56)
[2017-12-12] MEDS: AZITHROMYCIN INJ 500 MG in SODIUM CHLORIDE 0.9% 250 ML IV SCH (18:11)
[2017-12-13] MEDS: SODIUM CHLORIDE FLUSH 0.9% 10 ML SYRINGE IVP SCH ×2 (00:08→08:31)
[2017-12-13] MEDS: HYDROCORTISONE 1% CREAM 28 GM TUBE TOP SCH ×2 (03:29→08:31)
[2017-12-13 06:16] LABS: BASOPHILS # (AUTO) 0.1 10^3/uL (0.0-0.1); BASOPHILS % (AUTO) 1.1 %; EOSINOPHILS # (AUTO) 0.1 10^3/uL (0.0-0.7); EOSINOPHILS % (AUTO) 1.4 %; HGB - HEMOGLOBIN 11.2 g/dL (14.0-18.0); LYMPHOCYTES # (AUTO) 1.1 10^3/uL (1.5-3.5); LYMPHOCYTES % (AUTO) 17.2 %; MEAN CORPUSCULAR HEMOGLOBIN 27.4 pg (27.0-31.0); MEAN CORPUSCULAR HGB CONC 31.9 g/dL (32.0-36.0); MEAN CORPUSCULAR VOLUME 86.1 fL (80.0-94.0); MEAN PLATELET VOLUME 8.5 fL (7.4-11.4); MONOCYTES # (AUTO) 0.5 10^3/uL (0.0-1.0); MONOCYTES % (AUTO) 7.1 %; NEUTROPHILS # (AUTO) 4.7 10^3/uL (1.5-6.6); NEUTROPHILS % (AUTO) 73.2 %; PLT - PLATELET COUNT 172 10^3/uL (130-450); RED BLOOD COUNT 4.07 10^6/uL (4.70-6.10); RED CELL DISTRIBUTION WIDTH 15.4 % (12.0-15.0); WHITE BLOOD COUNT 6.4 x10^3/uL (4.8-10.8)
[2017-12-13 06:23] LABS: CALCIUM 8.2 mg/dL (8.5-10.3); CREATININE 0.9 mg/dL (0.6-1.2)
--- NOTE | 2017-12-13 08:08 | Discharge Plan ---
"Discharge Plan for SNF / MANAV - DC Plan and Transition Orders Disposition: 03 SNF DC/Xfer Condition: Good SNF Transition Orders: Admit to: [facility] under the care of Dr. barrientos Discharge Diagnosis: left lung community acquired pneumonia hypokalemia history of prostate cancer generalized weakness from illness gait ataxia Medicare Certification: I certify that [facility] care is medically necessary on a continuing basis for any of the conditions for which she/he is receiving care during hospitalization. Notify PCP of admission and forward orders to primary provider for signature. Weight on admission and weekly. Call PCP immediately if weight increases by 7 pounds or if patient develops dyspnea, chest pain/tightness or edema. House Bowel Program: yes If no BM after 2 days, nurse may give M.O.M. 30ml PO PRN and /or ducolax Supp 1 SC and /or SHELTON 250mg P.O., and/or senna 1-2 tabs PO. On day 3 nurse may give repeat above order until residents constipation is resolved. Immunizations: Annual Influenza Vaccine: yes. (between Mar 27 and October 24.) Unless allergy or already given Two-Step PPD: yes per [facility] [id number] or appropriate documentation of approved exceptions Treatments & Other Orders: none Oxygen Orders: O2 by nasal canula, prn to keep O2 sats >92% Lab Tests or X-Rays Orders: BMP in 1 week Orthopedic Orders: none. Medications: PLEASE REFER TO THE DISCHARGE MEDICATION LIST. Insulin Orders? no Diagnosis: No Diabetes Initiate hypo and hyperglycemia protocols for BG <70 and BG >375. May check BG prn for signs/symptoms of dysglycemia. Frequency of BG checks: [AC/Meal/HS] Basal Insulin: Lantus 100 units / ml inject subq as follows: [] [] Other: [] Correction Insulin: - Select the type of insulin below [Choose: Novolog/Humalog]100 units /ml insulin inject subq per orders indicate below [] LOW DOSE [] MODERATE DOSE [] MODERATE/HIGH DOSE [] HIGH DOSE GB UNITS GB UNITS GB UNITS GB UNITS 61-140 0 UNITS 61-140 0 UNITS 61-140 0 UNITS 61-140 0 UNITS 141-175 1 UNITS 141-175 1 UNITS 141-175 2 UNITS 141-175 3 UNITS 176-225 2 UNITS 176-225 3 UNITS 176-225 4 UNITS 176-225 5 UNITS 226-275 3 UNITS 226-275 5 UNITS 226-275 6 UNITS 226-275 7 UNITS 276-325 4 UNITS 276-325 7 UNITS 276-325 8 UNITS 276-325 9 UNITS 326-375 5 UNITS 326-375 9 UNITS 326-375 10 UNITS 326-375 11 UNITS >375 CONTACT MD >375 CONTACT MD >375 CONTACT MD >375 CONTACT MD Custom Dosing: [Choose: None/Novolog/Humalog] 100 units/ml Insulin inject subq as follows: GB Units 61-140 [] Units 141-175 [] Units 176-225 [] Units 226-275 [] Units 276-325 []Units 326-375 [] Units >375 Contact MD Allergies and Adverse Reactions: Allergies Allergy/AdvReac Type Severity Reaction Status Date / Time alendronate sodium Allergy Severe Rash Verified 01/06/16 15:15 [From Fosamax] Penicillins Allergy Intermediate Rash/Itchin Verified 01/06/16 15:15 g hydrocodone AdvReac Intermediate Nausea Verified 01/06/16 15:15 - Medications New Prescriptions: Levofloxacin [Levaquin] 750 mg PO DAILY #4 tablet - Diet Type: Geriatric Texture: Regular Liquids: Thin May have monthly special meal: Yes - Therapies | Activity Therapy: Evaluation | Treat if indicated: PT, OT Rehabilitation Potential: Maximize functional status, Return to independent living Activity: Activity as Tolerated Weight Bearing: Full Weight Assistance Devices: Walker Follow Up: Please make sure he sees his primary care provider when he leaves the facility in follow-up. He sees Silvio Moulton [facility]"
[2017-12-13] MEDS: CHOLECALCIFEROL 400 UNIT TABLET PO SCH (08:27)
[2017-12-13] MEDS: CALCIUM CARBONATE CHEW 500 MG TABLET PO SCH (08:28)
[2017-12-13] MEDS: SACCHAROMYCES BOULARDII 250 MG CAPSULE PO SCH (08:28)
[2017-12-13] MEDS: ASPIRIN EC 325 MG TABLET PO SCH (08:28)
[2017-12-13] MEDS: PHENYTOIN ER 100 MG CAPSULE PO SCH (08:28)
[2017-12-13] MEDS: POTASSIUM CHLORIDE 20 MEQ/15 ML UDC PO SCH (08:29)
[2017-12-13] MEDS: POLYETHYLENE GLYCOL 3350 17 GM PACKET PO SCH (08:31)
[2017-12-13 13:09] VITALS: BP 169/95
--- NOTE | 2017-12-14 06:48 | DISCHARGE SUMMARY ---
Physician: Tabby Zhou MD DATE OF ADMISSION: 12/10/2017 DATE OF DISCHARGE: 12/13/2017 DISCHARGE DIAGNOSES 1. Community-acquired pneumonia. 2. Personal history of malignant neoplasm of the prostate. 3. Hypokalemia. 4. Generalized weakness and gait ataxia. MEDICATIONS UPON TRANSFER TO LONG-TERM FACILITY 1. Acetaminophen 60 mg p.o. q.6 hours p.r.n. 2. Aspirin 325 mg p.o. daily. 3. Dulcolax 5 mg p.o. daily. 4. Calcium with vitamin D one tablet b.i.d. 5. Fluticasone nasal spray 2 sprays each nostril daily. 6. Levaquin 750 mg p.o. daily, #4. 7. Loratadine 10 mg p.o. daily. 8. Omeprazole 20 mg p.o. b.i.d. 9. Dilantin 100 mg p.o. daily. 10. Trospium chloride 20 mg p.o. b.i.d. PRINCIPAL PROCEDURES 1. Blood cultures, no growth after 2 days. 2. Respiratory cultures growing probable colonized Jyoti albicans and normal respiratory toi. 3. Chest x-ray with left lower lobe consolidation consistent with pneumonia. HOSPITAL COURSE: The patient is an 82-year-old male who was admitted for sudden onset of coughing, phlegm production. He said that it started the night before admission while he was lying in bed. He denies any antecedent illness. He denied fever, chills, sweats, sore throat. He describes himself as an independent gentleman who, although he lives with his , leads a sedentary solitary life within their home. He said it is not a good marriage. They sleep in separate bedrooms. They have completely separate lives. He does work out in the yard, cook for himself, and still drives. When he went to bed Thursday night, he realized that as the night progressed he was having a lot of phlegm, was coughing heavily, and was overcome by a wave of fatigue that did not allow him to get out of bed. He stayed awake all night long. In the morning he finally tried to make himself get up because he needed to go to the bathroom to pee. As he got out of the bed, he slid down to the floor, did not fall, and could not get back up again. He laid on the floor for several hours. Again, he and his sleep in separate bedrooms. When she found him, she called EMS and he was brought to the hospital. His admitting temperature was 37.2, heart rate was 83, respiratory rate 18, blood pressure 111/55 or 133/55. He is a gaunt, cachectic, elderly man, no respiratory distress. His lab work showed him to have hypokalemia, and elevated white cell count of 17.6. Mild anemia with hemoglobin of 12.3. It was normocytic. Chest x-ray showed the left lower lobe consolidation. Sputum and blood cultures were sent off on the patient and were unfortunately noncontributory in helping us decide what antibiotics to give him. He is not a smoker. He was placed on Rocephin and Zithromax. During his stay, he remained afebrile, had coughing only infrequently, and had no hypoxia. Although the gentleman describes a lifestyle where he is independent, etc., during his stay, he showed himself to be quite weak, needed quite a bit of help, and had almost gait ataxia. 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 He was seen by Physical Therapy where they felt that he was a fall risk. He was using a front-wheeled walker with his testing and was very unsteady. He had a festinating propulsive gait pattern with examination on his body showing him to have rug gross on his right face, right hip. When this gentleman lay on the floor for a few hours, unfortunately he lay in his own urine and stool. He has a band of redness and pressure across the back side and his buttocks, and the right lateral hip area. He was severely kyphoscoliotic with right hip obliquity. 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 Physical Therapy felt he should go on to do therapy and short-term stay at rehab. During his stay, hypokalemia was supplemented with oral and IV. We rechecked a PSA, because of his history of prostate cancer and he has not seen a urologist in awhile. PSA was 0.36. Dilantin level was less than 2.5 and subtherapeutic. Influenza A and B were negative. We did not attempt to make his Dilantin therapeutic because he seems to be tolerating 100 mg a day nicely. He may not, in fact, have a seizure disorder we need to worry about and his Dilantin increased dose will only contribute to gait ataxia. As such, the patient was sent to [facility] for rehabilitation. He is transferred in stable condition. PHYSICAL EXAMINATION VITAL SIGNS: Temperature 36.4, pulse 85, blood pressure 148/72, respirations 18 and 96% on room air. GENERAL: He is a loquacious conversationalist. Tangential and circumferential at best, but he has a deeply nasal tone of voice, partial sofia and moustache. No facial asymmetry. HEAD AND NECK: No rhinorrhea, No coryza. Bad teeth. Neck has shotty adenopathy, no goiter or bruits. LUNGS: Clear to auscultation and percussion. During his stay, he did have occasional rhonchi, but they cleared easily with a deep cough. He was minimally productive of yellow phlegm. He did have a dull left base with egophony. I was going to do a CT of the chest, but have decided to just repeat the chest x-ray in a month to make sure his left lower lobe consolidation has resolved. CARDIAC: He has a regular rate and rhythm with a soft systolic ejection murmur at the left lower sternal border. ABDOMEN: Soft, nontender, normal bowel sounds. EXTREMITIES: Gaunt, really severe decreased muscle mass, but no clubbing, cyanosis or edema. NEUROLOGIC: He has a slight facial asymmetry. That could be from the stroke from the 1970s, but he thinks his face is normal at this time. Greater than 30 minutes were spent in coordinating discharge of this patient. cc: Silvio Moulton MD TD: 12/13/2017 11:38
== END 2017-12-13 13:35 | DRG 195 ==
LOC: EDUNIT# → ED 14:40 → MS2 17:05
PROVIDERS: ADMIT Specialist; ATTEND Specialist
DX: J18.9 Pneumonia, unspecified organism (principal); G47.30 Sleep apnea, unspecified; K21.9 Gastro-esophageal reflux disease without esophagitis; N40.1 Benign prostatic hyperplasia with lower urinary tract symptoms; R35.0 Frequency of micturition; H91.90 Unspecified hearing loss, unspecified ear; M19.90 Unspecified osteoarthritis, unspecified site; G89.29 Other chronic pain; M41.9 Scoliosis, unspecified; M54.9 Dorsalgia, unspecified; L30.9 Dermatitis, unspecified; Z85.46 Personal history of malignant neoplasm of prostate; E87.6 Hypokalemia; R32 Unspecified urinary incontinence; Z86.73 Personal history of transient ischemic attack (TIA), and cerebral infarction without residual deficits; G40.909 Epilepsy, unspecified, not intractable, without status epilepticus; Z79.82 Long term (current) use of aspirin; Z88.0 Allergy status to penicillin; R26.0 Ataxic gait; D64.9 Anemia, unspecified
CPT/HCPCS: 36415; 71046; 80048; 80053; 80185; 81001; 81003; 83605; 83690; 83735; 84154; 84484; 85025; 87040; 87070; 87086; 87205; 87275; 87276; 93005; 96360; 96361; 99284; 99285

== ENCOUNTER 2018-01-17 20:07 | Emergency (ER) | payer MEDICARE, OTHER ==
[2018-01-17] MEDS ORDERED: GLYCERIN ADULT SUPP PR STA (20:36)
--- NOTE | 2018-01-17 20:36 | ED Physician Documentation ---
PD HPI ABD PAIN - Stated complaint Stated Complaint: CONSTIPATION - Chief complaint Chief Complaint: Abd Pain - History obtained from History obtained from: Patient - History of Present Illness Timing - onset: Enter time (12:00 (noon)), Today Timing - duration: Hours Timing - details: Gradual onset Pain level now: 6 Quality: Pain Location: Other (around anus and rectum) Improved by: Other (nothing) Worsened by: Other (nothing) Associated symptoms: Constipation. No: Fever, Nausea, Vomiting Recently seen: Not recently seen - Additional information Additional information: feels urge to defecate since noon today despite unable to have BM; increasingly intense and frequent urge associated with increasing pain. Review of Systems Constitutional: denies: Fever GI: reports: Abdominal Pain (low, midline, anterior), Constipation. denies: Nausea, Vomiting, Diarrhea : denies: Dysuria, Frequency Musculoskeletal: denies: Back pain PD PAST MEDICAL HISTORY - Past Medical History Past Medical History: Yes Cardiovascular: None Respiratory: Sleep apnea, Other Neuro: CVA, Seizure disorder Endocrine/Autoimmune: None GI: GERD : Benign prostate hypertrophy, Incontinence, Frequency, Other HEENT: Chronic hearing loss, Other Psych: None Musculoskeletal: Osteoarthritis, Scoliosis, Chronic back pain Derm: Eczema - Past Surgical History Past Surgical History: Yes General: Appendectomy, Colonoscopy, Other Ortho: Carpal Tunnel surgery, Other HEENT: Tonsil/Adenoidectomy - Present Medications Home Medications: Ambulatory Orders Medication Instructions Recorded Confirmed Calcium Carbonate/Vitamin D3 1 tab PO BID 01/16/15 12/10/17 [Calcium 500-Vit D3 200 Tablet] Omeprazole 20 mg PO BID 01/16/15 12/10/17 Acetaminophen 650 mg PO Q6H PRN #1 12/13/17 12/10/17 Aspirin EC [Ecotrin] 325 mg PO DAILY #0 12/13/17 12/10/17 Bisacodyl [Dulcolax] 5 mg PO DAILY PRN #1 12/13/17 12/10/17 Fluticasone [Flonase] 2 sprays GIO DAILY PRN #0 12/13/17 12/10/17 Levofloxacin [Levaquin] 750 mg PO DAILY #4 tablet 12/13/17 Loratadine [Claritin] 10 mg PO DAILY #0 12/13/17 12/10/17 Phenytoin [Dilantin] 100 mg PO DAILY #0 12/13/17 12/10/17 Trospium Chloride 20 mg PO BID #0 12/13/17 12/10/17 - Allergies Allergies/Adverse Reactions: Allergies Allergy/AdvReac Type Severity Reaction Status Date / Time alendronate sodium Allergy Severe Rash Verified 01/06/16 15:15 [From Fosamax] Penicillins Allergy Intermediate Rash/Itchin Verified 01/06/16 15:15 g hydrocodone AdvReac Intermediate Nausea Verified 01/06/16 15:15 - Social History Does the pt smoke?: No Smoking Status: Never smoker Does the pt drink ETOH?: No Does the pt have substance abuse?: No - Immunizations Immunizations are current?: Yes - POLST Patient has POLST: No POLST Status: Full Code PD ED PE NORMAL - Vitals Vital signs reviewed: Yes - General General: Alert and oriented X 3, No acute distress, Well developed/nourished - Abdomen Abdomen: Soft, Non tender - Derm Derm: Normal color, Warm and dry Results - Vitals Vitals: Vital Signs - 24 hr 01/17/18 01/17/18 20:24 23:14 Temperature 36.5 C Heart Rate 115 H 95 Respiratory 18 18 Rate Blood Pressure 158/102 H 164/86 H O2 Saturation 95 100 Oxygen O2 Source Room air PD MEDICAL DECISION MAKING - ED course Complexity details: considered differential, d/w patient ED course: Chux and surgical lubricant prepared, double gloved, and patient began to lay down on stretcher when he suddenly said he had to go to the bathroom again and couldn't wait. He went into BR (room-adjacent), and thus I ordered glycerin NC, will reevaluate. The next three times I went into room (over the span of approximately 90 minutes ), he was in bathroom. RN says patient has been in and out of bathroom. On fourth time I went back to room, he is in room, NAD, reports feeling much better. Given magnesium citrate to take at home and instructed to f/u with PMD, return if worse. - Sepsis Event Vital Signs: Vital Signs - 24 hr 01/17/18 01/17/18 20:24 23:14 Temperature 36.5 C Heart Rate 115 H 95 Respiratory 18 18 Rate Blood Pressure 158/102 H 164/86 H O2 Saturation 95 100 Oxygen O2 Source Room air Departure - Departure Disposition: 01 Home, Self Care Clinical Impression: Constipation Qualifiers: Constipation type: unspecified constipation type Qualified Code(s): K59.00 - Constipation, unspecified Condition: Good Instructions: ED Constipation Follow-Up: YUE MAR [Primary Care Provider] - Within 3 Days Comments: Drink 1/2 of the bottle of magnesium citrate when you get home. If you don't feel relief within few hours, drink the other half of the bottle. Discharge Date/Time: 01/17/18 23:14
[2018-01-17] MEDS ORDERED: MAGNESIUM CITRATE 296 ML BOTTLE PO STA (22:58)
[2018-01-17 23:15] VITALS: BP 164/86
== END 2018-01-17 23:14 | disposition home or self-care (01) ==
LOC: ED 20:07
DX: K59.00 Constipation, unspecified (principal); Z86.73 Personal history of transient ischemic attack (TIA), and cerebral infarction without residual deficits
CPT/HCPCS: 99283; A9270

== ENCOUNTER 2019-03-11 11:00 | Outpatient (CLI) | payer MEDICARE, OTHER ==
--- NOTE | 2019-03-12 18:45 | XRAY Report ---
Reason: CALCULUS OF KIDNEY Procedure Date: 03/11/2019 Accession Number: [id number] / [id number] Procedure: XRN - Abdomen 1 View X-Ray CPT Code: 74503 FULL RESULT: EXAM: ABDOMEN RADIOGRAPHY EXAM DATE: 03/11/2019 11:14 AM. CLINICAL HISTORY: Hematuria. History of kidney stone. COMPARISON: ABDOMEN/PELVIS W/O 08/26/2017 12:02 PM. TECHNIQUE: 1 view. FINDINGS: Bowel Gas Pattern: Within normal limits. No dilated loops. Other: 10 mm calcification projects over the lower left kidney and 4 mm calcification projects over the region of the left renal hilum. S-shaped scoliosis. IMPRESSION: Two soft tissue calcifications on the left, which may be left renal/ureteral. RADIA
== END 2019-03-11 11:01 | disposition home or self-care (01) ==
LOC: DI.N 11:00
PROVIDERS: ATTEND Urology
DX: N20.0 Calculus of kidney (principal)
CPT/HCPCS: 74018

== ENCOUNTER 2020-08-02 13:58 | Emergency (ER) | payer MEDICARE, OTHER ==
--- NOTE | 2020-08-02 14:45 | XRAY Report ---
PROCEDURE: Chest 1 View X-Ray INDICATIONS: Chest Pain TECHNIQUE: One view of the chest was acquired. COMPARISON: 12/10/2017 FINDINGS: Surgical changes and devices: None. Lungs and pleura: No pleural effusions or pneumothorax. And elevation of left hemidiaphragm is seen with left basilar atelectasis. No definite focal infiltrate. Mediastinum: Mediastinal contours appear normal. Heart size is enlarged Bones and chest wall: No suspicious bony lesions. Overlying soft tissues appear unremarkable. IMPRESSION: Elevation of left hemidiaphragm and left basilar atelectasis. No definite focal infiltrate. No signif icant pleural effusion or gross pneumothorax. Reviewed by: Heladio Pierre MD on 08/02/2020 2:43 PM PST Approved by: Heladio Pierre MD on 08/02/2020 2:43 PM PST Station ID: [id number]
[2020-08-02 15:24] LABS: BASOPHILS % (AUTO) 0.9 %; EOSINOPHILS # (AUTO) 0.1 10^3/uL (0.0-0.7); EOSINOPHILS % (AUTO) 2.1 %; LYMPHOCYTES # (AUTO) 1.2 10^3/uL (1.5-3.5); LYMPHOCYTES % (AUTO) 24.7 %; MEAN CORPUSCULAR HEMOGLOBIN 31.2 pg (27.0-31.0); MEAN CORPUSCULAR HGB CONC 33.2 g/dL (32.0-36.0); MEAN PLATELET VOLUME 9.7 fL (7.4-11.4); MONOCYTES # (AUTO) 0.5 10^3/uL (0.0-1.0); MONOCYTES % (AUTO) 11.6 %; NEUTROPHILS # (AUTO) 2.8 10^3/uL (1.5-6.6); NEUTROPHILS % (AUTO) 60.5 %; PLT - PLATELET COUNT 193 10^3/uL (130-450); RED BLOOD COUNT 4.81 10^6/uL (4.70-6.10); RED CELL DISTRIBUTION WIDTH 13.1 % (12.0-15.0); WHITE BLOOD COUNT 4.7 x10^3/uL (4.8-10.8)
[2020-08-02 15:36] LABS: INR 1.2 (0.8-1.2)
[2020-08-02 15:43] LABS: ALBUMIN 3.6 g/dL (3.2-5.5); ALBUMIN/GLOBULIN RATIO 1.4 (1.0-2.2); BILIRUBIN,TOTAL 0.6 mg/dL (0.2-1.0); CALCIUM 8.9 mg/dL (8.5-10.3); TOTAL PROTEIN 6.2 g/dL (6.7-8.2)
--- NOTE | 2020-08-02 15:57 | ED Physician Documentation ---
History of Present Illness - Stated complaint Stated Complaint: CHEST PX, LT ARM PX - Chief complaint Chief Complaint: Cardiac - History obtained from History obtained from: Patient - Additonal information Additional information: Patient comes emergency department chief complaint of pain on his right side and chest. He states that this is been going on and off for many years, but that he has not seen a doctor in a long time and he was concerned that it may be getting worse. Patient is not known to have any cardiac issues. He denies shortness of breath, nausea or vomiting, fever chills, or cough. No recent injuries. He states that he has a remote injury to his right chest wall when he was in the . Patient denies any other complaints at this time. Currently, his pain is a 2 out of 10. Worse with certain movements and comes and goes randomly. Review of Systems Ten Systems: 10 systems reviewed and negative Constitutional: reports: Reviewed and negative Eyes: reports: Reviewed and negative Ears: reports: Reviewed and negative Nose: reports: Reviewed and negative Throat: reports: Reviewed and negative Cardiac: reports: Chest pain / pressure Respiratory: reports: Reviewed and negative GI: reports: Reviewed and negative. denies: Abdominal Pain, Nausea : reports: Reviewed and negative Skin: reports: Reviewed and negative Musculoskeletal: reports: Reviewed and negative Neurologic: reports: Reviewed and negative Psychiatric: reports: Reviewed and negative Endocrine: reports: Reviewed and negative Immunocompromised: reports: Reviewed and negative PD PAST MEDICAL HISTORY - Past Medical History Cardiovascular: None Respiratory: Sleep apnea, Other Neuro: CVA, Seizure disorder Endocrine/Autoimmune: None GI: GERD : Benign prostate hypertrophy, Incontinence, Frequency, Other HEENT: Chronic hearing loss, Other Psych: None Musculoskeletal: Osteoarthritis, Scoliosis, Chronic back pain Derm: Eczema - Past Surgical History Past Surgical History: Yes General: Appendectomy, Colonoscopy, Other Ortho: Carpal Tunnel surgery, Other HEENT: Tonsil/Adenoidectomy - Present Medications Home Medications: Ambulatory Orders Medication Instructions Recorded Confirmed Calcium Carbonate/Vitamin D3 1 tab PO BID 01/16/15 12/10/17 [Calcium 500-Vit D3 200 Tablet] Omeprazole 20 mg PO BID 01/16/15 12/10/17 Acetaminophen 650 mg PO Q6H PRN #1 12/13/17 12/10/17 Aspirin EC [Ecotrin] 325 mg PO DAILY #0 12/13/17 12/10/17 Fluticasone [Flonase] 2 sprays GIO DAILY PRN #0 12/13/17 12/10/17 Loratadine [Claritin] 10 mg PO DAILY #0 12/13/17 12/10/17 Phenytoin [Dilantin] 100 mg PO DAILY #0 12/13/17 12/10/17 Trospium Chloride 20 mg PO BID #0 12/13/17 12/10/17 bisacodyL [Dulcolax] 5 mg PO DAILY PRN #1 12/13/17 12/10/17 levoFLOXacin [Levaquin] 750 mg PO DAILY #4 tablet 12/13/17 - Allergies Allergies/Adverse Reactions: Allergies Allergy/AdvReac Type Severity Reaction Status Date / Time alendronate sodium Allergy Severe Rash Verified 08/02/20 14:05 [From Fosamax] Penicillins Allergy Intermediate Rash/Itchin Verified 08/02/20 14:05 g hydrocodone AdvReac Intermediate Nausea Verified 08/02/20 14:05 - Social History Does the pt smoke?: No Smoking Status: Never smoker Does the pt drink ETOH?: No Does the pt have substance abuse?: No - Immunizations Immunizations are current?: Yes - POLST Patient has POLST: No POLST Status: Full Code PD ED PE NORMAL - Vitals Vital signs reviewed: Yes - General General: Alert and oriented X 3, No acute distress, Well developed/nourished - HEENT HEENT: Atraumatic, PERRL, EOMI, Moist mucous membranes - Neck Neck: Supple, no meningeal sign - Cardiac Cardiac: RRR, No murmur, Strong equal pulses - Respiratory Respiratory: No respiratory distress, Clear bilaterally - Abdomen Abdomen: Soft, Non tender, Non distended - Derm Derm: Normal color, Warm and dry, No rash - Extremities Extremities: No deformity, No edema, No calf tenderness / cord - Neuro Neuro: Alert and oriented X 3, pesticide applicator 2-12 intact, Normal speech, Other (Grossly intact motor and sensory.) - Psych Psych: Normal mood, Normal affect Results - Vitals Vitals: Oxygen O2 Source Room air - EKG (time done) 1405 Rate: Rate (enter#) (93) Rhythm: NSR [place]: Normal Intervals: Normal NV QRS: LVH Ischemia: Normal ST segments, Q waves (Probable LVH). No: T wave inversion Compare to prior EKG: Old EKG unavailable Computer interpretation: Agree with computer - Labs Labs: Laboratory Tests 08/02/20 08/02/20 08/02/20 15:18 15:18 15:18 WBC 4.7 L RBC 4.81 Hgb 15.0 Hct 45.2 MCV 94.0 MCH 31.2 H MCHC 33.2 RDW 13.1 Plt Count 193 MPV 9.7 Neut # (Auto) 2.8 Lymph # (Auto) 1.2 L [place] # (Auto) 0.5 Eos # (Auto) 0.1 Baso # (Auto) 0.0 Absolute Nucleated RBC 0.00 Nucleated RBC % 0.0 PT 13.0 H INR 1.2 Sodium 141 Potassium 3.9 Chloride 104 Carbon Dioxide 25 Anion Gap 12.0 BUN 16 Creatinine 1.0 Estimated GFR (MDRD) 71 L Glucose 98 Calcium 8.9 Total Bilirubin 0.6 AST 21 ALT 14 Alkaline Phosphatase 100 Troponin I High Sens Total Protein 6.2 L Albumin 3.6 Globulin 2.6 Albumin/Globulin Ratio 1.4 Lipase 33 08/02/20 15:18 WBC RBC Hgb Hct MCV MCH MCHC RDW Plt Count MPV Neut # (Auto) Lymph # (Auto) [place] # (Auto) Eos # (Auto) Baso # (Auto) Absolute Nucleated RBC Nucleated RBC % PT INR Sodium Potassium Chloride Carbon Dioxide Anion Gap BUN Creatinine Estimated GFR (MDRD) Glucose Calcium Total Bilirubin AST ALT Alkaline Phosphatase Troponin I High Sens 4.4 Total Protein Albumin Globulin Albumin/Globulin Ratio Lipase - Rads (name of study) CXR Radiology: Final report received, EMP read indepedently, See rad report (nad) PD MEDICAL DECISION MAKING - ED course Complexity details: reviewed results, re-evaluated patient, considered differential, d/w patient ED course: The patient was worked up with labs, EKG, and chest x-ray, as he had not seen a physician in quite a long time. The work-up was unremarkable. I discussed with the patient that he really needs to see primary care physician for chronic issues and care. I do not find any emergent cause of his symptoms tonight. We have discussed home management of the symptoms, as well as the usual indications for return. Departure - Departure Disposition: 01 Home, Self Care Clinical Impression: Chest pain Qualifiers: Chest pain type: unspecified Qualified Code(s): R07.9 - Chest pain, unspecified Back pain Qualifiers: Back pain location: low back pain Chronicity: chronic Back pain laterality: right Sciatica presence: without sciatica Qualified Code(s): M54.5 - Low back pain; G89.29 - Other chronic pain Condition: Stable Instructions: ED Chest Pain NonCardiac, ED Neck Back Pain General Comments: Your labs look very good. There is no evidence of an emergent condition causing the ongoing body pains that you have. Given that this is a chronic condition that has been going on on and off for many years, it is very important that you follow-up with your primary care physician to determine the best course of outpatient management of the symptoms. You do not have an emergent condition that has been identified today. If you develop severe shortness of breath, fevers, or any other potentially emergent symptoms, please return to the emergency department. Discharge Date/Time: 08/02/20 16:15
[2020-08-02 16:08] VITALS: BP 148/85
--- OUTSIDE RECORDS SUMMARY | 2020-08-08 01:16 | EXTERNAL MEDICAL SUMMARY RPT | Continuity of Care Document ---
:1935 Demographics Phone Unavailable Preferred Language Unknown Marital Status Unknown Jewish Affiliation Unknown Race Unknown Ethnic Group Unknown Author Organization [place] Address [address] [place] [address] Phone Care Team Providers Name Role Phone Kenney Unavailable Unavailable BADURA Unavailable Unavailable Problems date description facility 2013-11-12 16:36 THORACIC SPONDYLOSIS [facility] 2013-11-12 16:36 LUMBOSACRAL SPONDYLOSIS [facility] 2013-11-12 16:36 LUMB/LUMBOSAC DISC DEGEN [facility] 2013-11-12 16:36 IDIOPATHIC SCOLIOSIS [facility] 2013-11-12 16:36 SPONDYLOLISTHESIS [facility] 2013-11-12 16:36 HX-PROSTATIC MALIGNANCY [facility] 2015-01-19 08:34 OTHER CHRONIC PAIN [facility] 2015-01-19 08:34 ESOPHAGEAL REFLUX [facility] 2015-01-19 08:34 UNILAT ING HERNIA W OBST [facility] 2015-01-19 08:34 HYPERTROPHY (BENIGN) OF PROSTATE W [facility] URINARY OBST [facility]TH [place] 2015-01-19 08:34 ARTHROPATHY N[facility] [place] 2015-01-19 08:34 BACKACHE NOS [facility] 2015-01-19 08:34 IDIOPATHIC SCOLIOSIS [facility] 2015-01-19 08:34 UNSPECIFIED SLEEP APNEA [facility] 2015-01-19 08:34 URINARY FREQUENCY [facility] 2015-01-19 08:34 HX-PROSTATIC MALIGNANCY [facility] 2015-01-19 08:34 PERSONAL HISTORY OF POLIOMYELITIS [facility] 2015-01-19 08:34 PERSONAL HX OF TIA, 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 2015-01-19 08:34 LONG-TERM (CURRENT) USE OF ASPIRIN [facility] 2016-01-06 15:01 UNSPECIFIED [facility] SITE 2016-01-06 15:01 SCOLIOSIS, UNSPECIFIED [facility] 2016-01-06 15:01 LOW BACK PAIN [facility] 2016-01-06 15:01 PELVIC AND PERINEAL PAIN [facility] 2017-08-26 11:42 CALCULUS OF KIDNEY [facility] 2017-12-10 17:05 ANEMIA, UNSPECIFIED formerly [facility] 2017-12-10 17:05 HYPOKALEMIA [facility] 2017-12-10 17:05 EPILEPSY, UNSP, NOT INTRACTABLE, [facility] WITHOUT STATUS EPILEPTICUS 2017-12-10 17:05 SLEEP APNEA, UNSPECIFIED [facility] 2017-12-10 17:05 OTHER CHRONIC PAIN [facility] 2017-12-10 17:05 UNSPECIFIED HEARING LOSS, [facility] UNSPECIFIED EAR 2017-12-10 17:05 PNEUMONIA, UNSPECIFIED ORGANISM [facility] 2017-12-10 17:05 GASTRO-ESOPHAGEAL REFLUX DISEASE [facility] WITHOUT ESOPHAGITIS 2017-12-10 17:05 [facility] 2017-12-10 17:05 [facility] 2017-12-10 17:05 SCOLIOSIS, UNSPECIFIED [facility] 2017-12-10 17:05 DORSALGIA, UNSPECIFIED [facility] 2017-12-10 17:05 BENIGN PROSTATIC HYPERPLASIA WITH [facility] LOWER URINARY TRACT SYMP 2017-12-10 17:05 ATAXIC GAIT [facility] 2017-12-10 17:05 UNSPECIFIED URINARY INCONTINENCE [facility] 2017-12-10 17:05 FREQUENCY OF MICTURITION [facility] 2017-12-10 17:05 REGISTERED ART THERAPIST (CURRENT) USE OF ASPIRIN [facility] 2017-12-10 17:05 PERSONAL HISTORY OF MALIGNANT [facility] NEOPLASM OF PROSTATE 2017-12-10 17:05 PRSNL HX OF TIA (TIA), 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 2017-12-10 17:05 ALLERGY STATUS [facility] 2018-01-17 20:07 CONSTIPATION, UNSPECIFIED [facility] 2018-01-17 20:07 PRSNL HX OF TIA (TIA), 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 2019-03-11 11:00 CALCULUS OF KIDNEY [facility] Allergies date description facility PENICILLINS [facility] SULFA (SULFONAMIDE ANTIBIOTICS) [facility] NAPROXEN SODIUM [facility] [place] PENICILLIN V POTASSIUM [facility] CIPROFLOXACIN [facility] VENLAFAXINE [facility] TRAZODONE [facility] DULOXETINE [facility] SULFAMETHOXAZOLE-TRIMETHOPRIM [facility] Penicillins [facility] hydrocodone [facility] alendronate sodium [facility] AMOXICILLIN [facility] NO KNOWN ENVIRONMENTAL ALLERGIES [facility] NO ALLERGY INFORMATION AVAILABLE [facility] NO KNOWN ALLERGIES [facility] NO KNOWN ALLERGIES [facility] Results Social History date description facility [id number]
== END 2020-08-02 16:15 | disposition home or self-care (01) ==
LOC: ED 13:58
DX: R07.9 Chest pain, unspecified (principal); M54.5 Low back pain; G89.29 Other chronic pain; Z79.82 Long term (current) use of aspirin
CPT/HCPCS: 36415; 80053; 83690; 84484; 85025; 85610; 93005; 99284

== ENCOUNTER 2021-03-23 09:56 | Outpatient (CLI) | payer MEDICARE, OTHER | END 2021-03-23 09:57 | disposition critical access hospital (66) | LOC: EMS 09:56 | DX: R41.0 Disorientation, unspecified (principal); R53.1 Weakness; R19.7 Diarrhea, unspecified | CPT/HCPCS: A0425; A0429 ==

== ENCOUNTER 2021-03-23 10:15 | Inpatient (IN) | payer MEDICARE, OTHER ==
[2021-03-23] MEDS ORDERED: SODIUM CHLORIDE 0.9% 1,000 ML IV STA ×3 (10:31→14:17)
--- NOTE | 2021-03-23 10:31 | ED Physician Documentation ---
History of Present Illness - Stated complaint Stated Complaint: DIARRHEA/CONFUSION - Chief complaint Chief Complaint: General - History obtained from History obtained from: Patient, Family, EMS - History of Present Illness Timing: How many weeks ago (1) - Additonal information Additional information: 85-year-old male has developed diarrhea over the past 10 days and he has become confused and his has called the ambulance. The patient is weak and he is able to answer questions seems to answer them appropriately (mostly) but does have a delay in execution of motor commands. The indicates she has tried to get some gatorade in to him and this seemed to help but then he became disinterested in everything and did not eat or drink but continued to have watery bowel movements. He has not been on recent antibiotic. Review of Systems Unable to obtain: Confused Constitutional: denies: Fever GI: reports: Diarrhea : denies: Dysuria, Frequency Neurologic: reports: Generalized weakness, Confused, Altered mental status PD PAST MEDICAL HISTORY - Past Medical History Cardiovascular: None Respiratory: Sleep apnea, Other Neuro: CVA, Seizure disorder Endocrine/Autoimmune: None GI: GERD : Benign prostate hypertrophy, Incontinence, Frequency, Other HEENT: Chronic hearing loss, Other Psych: None Musculoskeletal: Osteoarthritis, Scoliosis, Chronic back pain Derm: Eczema - Past Surgical History Past Surgical History: Yes General: Appendectomy, Colonoscopy, Other Ortho: Carpal Tunnel surgery, Other HEENT: Tonsil/Adenoidectomy - Present Medications Home Medications: Ambulatory Orders Medication Instructions Recorded Confirmed Calcium Carbonate/Vitamin D3 1 tab PO BID 01/16/15 12/10/17 [Calcium 500-Vit D3 200 Tablet] Omeprazole 20 mg PO BID 01/16/15 12/10/17 Acetaminophen 650 mg PO Q6H PRN #1 12/13/17 12/10/17 Aspirin EC [Ecotrin] 325 mg PO DAILY #0 12/13/17 12/10/17 Fluticasone [Flonase] 2 sprays GIO DAILY PRN #0 12/13/17 12/10/17 Loratadine [Claritin] 10 mg PO DAILY #0 12/13/17 03/23/21 Phenytoin [Dilantin] 100 mg PO DAILY #0 12/13/17 12/10/17 Trospium Chloride 20 mg PO BID #0 12/13/17 12/10/17 bisacodyL [Dulcolax] 5 mg PO DAILY PRN #1 12/13/17 12/10/17 levoFLOXacin [Levaquin] 750 mg PO DAILY #4 tablet 12/13/17 Naproxen [EC-Naproxen] 500 mg PO DAILY 03/23/21 03/23/21 Tolterodine Tartrate 2 mg PO DAILY 03/23/21 03/23/21 - Allergies Allergies/Adverse Reactions: Allergies Allergy/AdvReac Type Severity Reaction Status Date / Time alendronate sodium Allergy Severe Rash Verified 03/23/21 10:28 [From Fosamax] Penicillins Allergy Intermediate Rash/Itchin Verified 03/23/21 10:28 g hydrocodone AdvReac Intermediate Nausea Verified 03/23/21 10:28 - Social History Does the pt smoke?: No Smoking Status: Never smoker Does the pt drink ETOH?: No Does the pt have substance abuse?: No - Immunizations Immunizations are current?: Yes - POLST Patient has POLST: No POLST Status: Full Code PD ED PE NORMAL - Vitals Vital signs reviewed: Yes (Hypertensive mild) - General General: No acute distress, Well developed/nourished, Other (slow to respond prefers eyes closed ) - HEENT HEENT: Atraumatic, PERRL, EOMI - Neck Neck: Supple, no meningeal sign, No bony TTP - Cardiac Cardiac: RRR, No murmur - Respiratory Respiratory: No respiratory distress, Other (Diminished breath sounds bilaterally) - Abdomen Abdomen: Normal bowel sounds, Soft, Non tender, Non distended, No organomegaly - Back Back: No CVA TTP, No spinal TTP - Derm Derm: Normal color, Warm and dry, No rash, Other (Tenting of the skin is present) - Extremities Extremities: No deformity - Neuro Neuro: supervisor files 2-12 intact, No motor deficit, No sensory deficit, Normal speech Eye Opening: To Voice Motor: Obeys Commands Verbal: Confused GCS Score: 13 - Psych Psych: Normal mood, Normal affect Results - Vitals Vitals: Vital Signs - 24 hr 03/23/21 03/23/21 03/23/21 10:23 10:57 12:10 Temperature 36.7 C 36 C L Heart Rate 89 84 78 Respiratory 16 17 16 Rate Blood Pressure 123/85 H 134/89 H 100/72 O2 Saturation 99 97 98 03/23/21 03/23/21 03/23/21 12:38 13:53 16:05 Temperature Heart Rate 75 85 88 Respiratory 14 16 14 Rate Blood Pressure 131/76 H 142/66 H 145/81 H O2 Saturation 99 100 98 03/23/21 16:42 Temperature 36.4 C L Heart Rate 86 Respiratory 16 Rate Blood Pressure 125/92 H O2 Saturation 96 Oxygen O2 Source Room air - Labs Labs: Laboratory Tests 03/23/21 03/23/21 03/23/21 10:38 11:17 16:10 WBC 23.8 H RBC 4.78 Hgb 15.1 Hct 44.9 MCV 93.9 MCH 31.6 H MCHC 33.6 RDW 13.5 Plt Count 192 MPV 10.0 Neut # (Auto) 20.4 H Lymph # (Auto) 0.9 L Heard # (Auto) 2.4 H Eos # (Auto) 0.1 Baso # (Auto) 0.1 Absolute Nucleated RBC 0.00 Band Neuts % (Manual) Not Reportable Abnorm Lymph % (Manual) Not Reportable Nucleated RBC % 0.0 Neutrophils # (Manual) Not Reportable Lymphocytes # (Manual) Not Reportable Monocytes # (Manual) Not Reportable Eosinophils # (Manual) Not Reportable Basophils # (Manual) Not Reportable Differential Comment MANUAL=AUTO DIFF Platelet Estimate NORMAL (130-450,000) Platelet Morphology NORMAL APPEARANCE RBC Morph Micro Appear NORMAL APPEARANCE Sodium 142 Potassium 4.2 Chloride 108 Carbon Dioxide 25 Anion Gap 9.0 BUN 38 H Creatinine 1.2 Estimated GFR (MDRD) 58 L Glucose 108 H Calcium 8.6 Total Bilirubin 1.1 H AST 26 ALT 14 Alkaline Phosphatase 78 Total Protein 6.1 L Albumin 3.5 Globulin 2.6 Albumin/Globulin Ratio 1.3 Lipase 17 L Urine Color YELLOW Urine Clarity CLEAR Urine pH 5.5 Ur Specific [place] >=1.030 H Urine Protein TRACE Urine Glucose (UA) NEGATIVE Urine Ketones NEGATIVE Urine Occult Blood NEGATIVE Urine Nitrite NEGATIVE Urine Bilirubin NEGATIVE Urine Urobilinogen 0.2 (NORMAL) Ur Leukocyte Esterase NEGATIVE Ur Microscopic Review NOT INDICATED Urine Culture Comments NOT INDICATED - Rads (name of study) CT head Radiology: Prelim report reviewed (Impression: One. No acute intracranial abnormality. Chronic small vessel ischemic changes.), EMP read indepedently, See rad report Chest Radiology: Prelim report reviewed, EMP read indepedently, See rad report Procedures - IVC sono (time) 1038 Bedside IVC sono: IVC measures (cm) (0.89), Dehydration (est 2 litre deficit) PD MEDICAL DECISION MAKING - ED course Complexity details: reviewed results, re-evaluated patient, considered differential, d/w patient, d/w family (with Maki [phone]) ED course: 85-year-old male with diarrhea for the past 10 days has become dehydrated enough to have confusion and a blunted affect as well as delay in execution of motor commands. IV saline is begun. After a liter of saline the patient is able to open his eyes and talk a bit more and he continues to improve throughout the day. He does not gain his strength back. He does have further diarrhea here in the emergency department and his stool sent for evaluation. Urinalysis is unremarkable chest x-ray is unremarkable head CT is unremarkable white blood cell count is markedly elevated at 23.8 and he does have evidence of acute kidney injury with a BUN of 38. Dr. Piedra is consulted in the case and graciously agrees to care for the patient in the hospital. Departure - Departure Disposition: ED Place in Observation Clinical Impression: Dehydration, Acute kidney injury Diarrhea Qualifiers: Diarrhea type: presumed infectious Qualified Code(s): R19.7 - Diarrhea, unspec ified Condition: Fair
--- NOTE | 2021-03-23 11:06 | XRAY Report ---
PROCEDURE: Chest 1 View X-Ray INDICATIONS: weakness confusion TECHNIQUE: One view of the chest was acquired. COMPARISON: August 02, 2020 chest x-ray FINDINGS: Surgical changes and devices: None. Lungs and pleura: No pleural effusions or pneumothorax. Lungs are clear. Mild left hemidiaphragm e levation and subsegmental atelectasis. Mediastinum: Mediastinal contours appear normal. Heart size is normal. Bones and chest wall: No suspicious bony lesions. Overlying soft tissues appear unremarkable. IMPRESSION: No acute cardiopulmonary abnormality. Reviewed by: Alphonse Galan on 03/23/2021 10:05 AM EZIO Approved by: Alphonse Galan on 03/23/2021 10:05 AM EZ[facility] Station ID: [id number]
--- NOTE | 2021-03-23 11:13 | CT Report ---
PROCEDURE: HEAD WO INDICATIONS: confusion TECHNIQUE: Noncontrast 4.5 mm thick angled axial sections acquired from the foramen magnum to the vertex. For r adiation dose reduction, the following was used: automated exposure control, adjustment of mA and/or kV according to patient size. COMPARISON: None. FINDINGS: Image quality: Excellent. CSF spaces: Basal cisterns are patent. No extra-axial fluid collections. Ventricles are normal in size and shape. Brain: No midline shift. No intracranial masses or hemorrhage. Bird-white matter interface is norm al. Scattered periventricular subcortical foci of white matter hypoattenuation consistent with chron ic small vessel ischemic changes. Skull and face: Calvarium and visualized facial bones are intact, without suspicious lesions. Sinuses: Visualized sinuses and mastoids are clear. IMPRESSION: 1. No acute intracranial abnormality. 2. Chronic small vessel ischemic changes. Reviewed by: Alphonse Galan on 03/23/2021 10:12 AM EZIO Approved by: Alphonse Galan on 03/23/2021 10:12 AM E[facility] Station ID: [id number]
[2021-03-23 11:24] LABS: BASOPHILS # (AUTO) 0.1 10^3/uL (0.0-0.1); BASOPHILS % (AUTO) 0.3 %; EOSINOPHILS # (AUTO) 0.1 10^3/uL (0.0-0.7); EOSINOPHILS % (AUTO) 0.2 %; HCT - HEMATOCRIT 44.9 % (42.0-52.0); HGB - HEMOGLOBIN 15.1 g/dL (14.0-18.0); LYMPHOCYTES # (AUTO) 0.9 10^3/uL (1.5-3.5); LYMPHOCYTES % (AUTO) 3.6 %; MEAN CORPUSCULAR HEMOGLOBIN 31.6 pg (27.0-31.0); MEAN CORPUSCULAR HGB CONC 33.6 g/dL (32.0-36.0); MEAN CORPUSCULAR VOLUME 93.9 fL (80.0-94.0); MONOCYTES # (AUTO) 2.4 10^3/uL (0.0-1.0); MONOCYTES % (AUTO) 9.9 %; NEUTROPHILS # (AUTO) 20.4 10^3/uL (1.5-6.6); NEUTROPHILS % (AUTO) 85.5 %; PLT - PLATELET COUNT 192 10^3/uL (130-450); RED BLOOD COUNT 4.78 10^6/uL (4.70-6.10); RED CELL DISTRIBUTION WIDTH 13.5 % (12.0-15.0); WHITE BLOOD COUNT 23.8 x10^3/uL (4.8-10.8)
[2021-03-23 11:29] LABS: DIFFERENTIAL COMMENT MANUAL=AUTO DIFF; PLATELET ESTIMATE, MANUAL NORMAL (130-450,000) (NORMAL); PLATELET MORPHOLOGY NORMAL APPEARANCE (NORMAL); RBC MORPHOLOGY (MULTIPLE) NORMAL APPEARANCE (NORMAL)
[2021-03-23 11:57] LABS: ALBUMIN 3.5 g/dL (3.2-5.5); ALBUMIN/GLOBULIN RATIO 1.3 (1.0-2.2); BILIRUBIN,TOTAL 1.1 mg/dL (0.2-1.0); CALCIUM 8.6 mg/dL (8.5-10.3); CREATININE 1.2 mg/dL (0.6-1.2); POTASSIUM 4.2 mmol/L (3.5-5.0); TOTAL PROTEIN 6.1 g/dL (6.7-8.2)
[2021-03-23 16:15] LABS: BILIRUBIN,URINE NEGATIVE (NEGATIVE); CLARITY,URINE CLEAR (CLEAR); GLUCOSE, URINE (UA) NEGATIVE (NEGATIVE); KETONES,URINE (UA) NEGATIVE (NEGATIVE); LEUKOCYTE ESTERASE, URINE NEGATIVE (NEGATIVE); NITRITE,URINE NEGATIVE (NEGATIVE); OCCULT BLOOD,URINE NEGATIVE (NEGATIVE); PH,URINE 5.5 PH (5.0-7.5); PROTEIN,URINE TRACE mg/dL (NEGATIVE); UROBILINOGEN,URINE 0.2 (NORMAL) E.U./dL (NORMAL)
[2021-03-23] MEDS ORDERED: SODIUM CHLORIDE FLUSH 0.9% 10 ML SYRINGE IVP PRN (17:02)
[2021-03-23] MEDS ORDERED: PROMETHAZINE 25 MG/1 ML VIAL IM PRN (17:02)
--- NOTE | 2021-03-23 17:48 | HISTORY & PHYSICAL EXAMINATION ---
Chief Complaint - Chief Complaint Chief Complaint: Diarrhea History of Present Illness - Admitted From Admitted From:: Emergency room via home - History Obtained From Records Reviewed: ER records History obtained from: Patient and patient's as well as ED physician Exam Limitations: Patient is a poor historian and is somewhat confused - History of Present Illness HPI Comment/Other: Patient is an 85-year-old male who is somewhat of a poor historian but per has had diarrhea for about a week or so. She states that it started approximately a week ago, and she called the [place] nurse line who advised him to start a brat diet after which it seems to have improved for about 2 days or so, however at eventually returned and has been ongoing now for the last 5 days with progressively worsening weakness, decreased p.o. intake, leading her to be unable to provide care for her . In the ER, his work-up was remarkable for leukocytosis with a WBC of 23,000. His vital signs are relatively unremarkable. He is alert and oriented to person and location but is otherwise somewhat confused.Despite the significant diarrhea he does not present with electrolyte disturbancesAnd a urinalysis is pending as it was difficult for patient to produce a urine sample. I did discuss with the patient's regarding CODE STATUS and she informs me that they have regrettably not had this conversation in any great depth and so for now she would like for him to be full code. History - Past Medical History Cardiovascular: reports: None Respiratory: reports: Sleep apnea, Other Neuro: reports: CVA, Seizure disorder Endocrine/Autoimmune: reports: None GI: reports: GERD : reports: Benign prostate hypertrophy, Incontinence, Frequency, Other HEENT: reports: Chronic hearing loss, Other Psych: reports: None Musculoskeletal: reports: Osteoarthritis, Scoliosis, Chronic back pain Derm: reports: Eczema MRSA Hx?: No - Past Surgical History General: reports: Appendectomy, Colonoscopy, Other Ortho: reports: Carpal Tunnel surgery, Other HEENT: reports: Tonsil/Adenoidectomy - Family & Social History Family History Comment/Other: Dad in his 80s of old age. Mom at 88 of old age. One sister of pneumonia. One brother is 2 years younger than him and not healthy. He cannot say why he is not healthy just that is not healthy. One daughter who is healthy and has no problems with high blood pressure, diabetes, heart, thyroid or cancer. Social History Notes: He was born in [place]. From [place] he enrolled in [employer] with the and was then [place]. From there he went to [place] and works in the [employer] for a year. Went back to [place] then to [place] where he met his in 1962 Reenrolled in the , this time [employer]. Get out of the [employer] in June 14, 1980 and when he retired they came to [facility]. He never smoked. Rarely drank. Never did recreational substance abuse. - Substance History Use: Uses substance without health or social issues: NONE - POLST Patient has POLST: No POLST Status: Full Code Meds/Allgy - Home Medications Home Medications: Ambulatory Orders Medication Instructions Recorded Confirmed Calcium Carbonate/Vitamin D3 1 tab PO BID 01/16/15 12/10/17 [Calcium 500-Vit D3 200 Tablet] Omeprazole 20 mg PO BID 01/16/15 12/10/17 Acetaminophen 650 mg PO Q6H PRN #1 12/13/17 12/10/17 Aspirin EC [Ecotrin] 325 mg PO DAILY #0 12/13/17 12/10/17 Fluticasone [Flonase] 2 sprays GIO DAILY PRN #0 12/13/17 12/10/17 Loratadine [Claritin] 10 mg PO DAILY #0 12/13/17 03/23/21 Phenytoin [Dilantin] 100 mg PO DAILY #0 12/13/17 12/10/17 Trospium Chloride 20 mg PO BID #0 12/13/17 12/10/17 bisacodyL [Dulcolax] 5 mg PO DAILY PRN #1 12/13/17 12/10/17 levoFLOXacin [Levaquin] 750 mg PO DAILY #4 tablet 12/13/17 Naproxen [EC-Naproxen] 500 mg PO DAILY 03/23/21 03/23/21 Tolterodine Tartrate 2 mg PO DAILY 03/23/21 03/23/21 - Allergies Allergies/Adverse Reactions: Allergies Allergy/AdvReac Type Severity Reaction Status Date / Time alendronate sodium Allergy Severe Rash Verified 03/23/21 10:28 [From Fosamax] Penicillins Allergy Intermediate Rash/Itchin Verified 03/23/21 10:28 g hydrocodone AdvReac Intermediate Nausea Verified 03/23/21 10:28 Review of Systems - Constitutional Constitutional: reports: Fatigue, Weakness, Poor appetite. denies: Fever, Chills - Cardiovascular Cariovascular: denies: Irregular heart rate, Chest pain - Gastrointestinal Gastrointestinal: reports: Diarrhea, Change in bowel habits. denies: Abdominal pain, Constipation, Black stools, Nausea, Vomiting - Genitourinary Genitourinary: denies: Dysuria - Neurological Neurological: reports: General weakness. denies: Focal weakness Prior Level of Functionality: Typically independent and ambulatory Exam - Vital Signs Vital Signs: Vital Signs x48h Temp Pulse Resp BP Pulse Ox 03/23/21 16:42 36.4 C L 86 16 125/92 H 96 03/23/21 16:05 88 14 145/81 H 98 03/23/21 13:53 85 16 142/66 H 100 03/23/21 12:38 75 14 131/76 H 99 03/23/21 12:10 78 16 100/72 98 03/23/21 10:57 36 C L 84 17 134/89 H 97 03/23/21 10:23 36.7 C 89 16 123/85 H 99 - Physical Exam General Appearance: positive: No acute distress Eyes Bilateral: positive: Normal inspection ENT: positive: ENT inspection nml, Dry mucous membranes Respiratory: positive: Chest non-tender, No respiratory distress, Breath sounds nml Cardiovascular: positive: Regular rate & rhythm, No murmur, No gallop Abdomen: positive: Tenderness (Mild tenderness at the suprapubic abdominal region, as well as left lower quadrant) Back: positive: Nml inspection Skin: positive: Color nml, No rash, Warm Extremities: positive: Non-tender, No pedal edema Neurologic/Psychiatric: positive: Disoriented to place, Disoriented to time. negative: Disoriented to person Conclusion/Plan - Problem List (1) Diarrhea Conclusion/Plan: Nonspecific diarrhea for 5 to 7 days with differential including C. difficile, Giardia, norovirus, COVID-19, inflammatory bowel disease or gastroenteritis Will admit to inpatient with IV fluids, stool studies and given the significant leukocytosis, will start empiric oral vancomycin while awaiting results of C. difficile studies. Qualifiers: Diarrhea type: presumed infectious Qualified Code(s): R19.7 - Diarrhea, unspecified (2) Leukocytosis Conclusion/Plan: As above, leukocytosis is significant with white count of 23,000. This does favor a diagnosis of colitis of some sort, and hence the empiric oral vancomycin for C. difficile which will be discontinued if studies are negative. Repeat labs in the a.m. If not significantly improved or otherwise clinically worsening, will get CT abdomen to evaluate for colitis. (3) Weakness Conclusion/Plan: Significant diarrhea for the last week with poor oral intake If not significantly improved consider PT consult (4) Dehydration Conclusion/Plan: Above, start IV fluids at 100 mill per hour Monitor urine output - Lab Results Lab results reviewed: Yes Fish Bones: 03/23/21 10:38 03/23/21 11:17 - Diagnostic Imaging Results Diagnostic Imaging Results: positive: Prelim report reviewed - EKG Results EKG Interpreted Independently: Yes Core Measures - Anticipated LOS I expect patient to be DC'd or transferred within 96 hours.: Yes - DVT/VTE - Prophylaxis VTE/DVT Device ordered at admit?: Yes
[2021-03-23 18:24] LABS: B. PARAPERTUSSIS- RESP PCR PAN NOT DETECTED; B. PERTUSSIS- RESP PCR PANEL NOT DETECTED; C. PNEUMONIAE- RESP PCR PANEL NOT DETECTED; CORONAVIRUS 229E-RESP PCR NOT DETECTED; CORONAVIRUS HKU1-RESP PCR NOT DETECTED; CORONAVIRUS NL63-RESP PCR NOT DETECTED; CORONAVIRUS OC43-RESP PCR NOT DETECTED; HUMAN METAPNEUMOVIRUS NOT DETECTED; INFLUENZA A- RESP PCR PANEL NOT DETECTED; INFLUENZA B - RESP PCR PANEL NOT DETECTED; M. PNEUMONIAE- RESP PCR PANEL NOT DETECTED; PARAINFLUENZA VIRUS 1 NOT DETECTED; PARAINFLUENZA VIRUS 2 NOT DETECTED; PARAINFLUENZA VIRUS 3 NOT DETECTED; PARAINFLUENZA VIRUS 4 NOT DETECTED; RHINOVIRUS/ENTEROVIRUS NOT DETECTED; RSV- RESP PCR PANEL NOT DETECTED; SARS-CoV-2 -RESP PCR PANEL NOT DETECTED
[2021-03-23] MEDS: SODIUM CHLORIDE 0.9% 1,000 ML IV SCH (18:32)
[2021-03-23] MEDS ORDERED: MIN OIL/DIMETHICON/COCONUT OIL 92 GM TUBE TOP PRN (18:59)
[2021-03-23] MEDS ORDERED: VANCOMYCIN 125 MG CAPSULE PO SCH (21:00)
[2021-03-23] MEDS: HEPARIN 5,000 UNIT/ML VIAL SUBQ SCH (21:18)
[2021-03-23] MEDS: ACETAMINOPHEN 325 MG TABLET PO PRN (21:20)
[2021-03-23] MEDS: LOPERAMIDE 2 MG CAPSULE PO PRN (21:20)
[2021-03-24] MEDS: SODIUM CHLORIDE FLUSH 0.9% 10 ML SYRINGE IVP SCH ×4 (00:39→23:39)
[2021-03-24] MEDS: SODIUM CHLORIDE 0.9% 1,000 ML IV SCH ×3 (04:37→22:36)
[2021-03-24] MEDS: LOPERAMIDE 2 MG CAPSULE PO PRN ×2 (06:44→16:06)
[2021-03-24 06:54] LABS: HCT - HEMATOCRIT 36.3 % (42.0-52.0); HGB - HEMOGLOBIN 12.1 g/dL (14.0-18.0); MEAN CORPUSCULAR HEMOGLOBIN 31.4 pg (27.0-31.0); MEAN CORPUSCULAR HGB CONC 33.3 g/dL (32.0-36.0); MEAN CORPUSCULAR VOLUME 94.3 fL (80.0-94.0); MEAN PLATELET VOLUME 9.9 fL (7.4-11.4); RED BLOOD COUNT 3.85 10^6/uL (4.70-6.10); RED CELL DISTRIBUTION WIDTH 13.6 % (12.0-15.0); WHITE BLOOD COUNT 14.2 x10^3/uL (4.8-10.8)
[2021-03-24 07:06] LABS: CALCIUM 7.5 mg/dL (8.5-10.3); CREATININE 0.8 mg/dL (0.6-1.2); POTASSIUM 3.5 mmol/L (3.5-5.0)
[2021-03-24] MEDS: LORATADINE 10 MG TABLET PO SCH (08:52)
[2021-03-24] MEDS: SOLIFENACIN SUCCINATE 5 MG TABLET PO SCH (08:52)
[2021-03-24] MEDS: HEPARIN 5,000 UNIT/ML VIAL SUBQ SCH ×2 (08:53→21:40)
[2021-03-24] MEDS ORDERED: PHENYTOIN ER 100 MG CAPSULE PO SCH (09:00)
--- NOTE | 2021-03-24 11:01 | PROVIDER PROGRESS NOTE ---
Subjective - Prog Note Date Prog Note Date: 03/24/21 Prog Note Time: 11:00 - Subjective Pt reports feeling: Improved, No change (Patient is unable to give much specifics regarding number of bowel movements, but overall he tells me he feels about the same as he did when he was admitted.) Current Medications - Current Medications Current Medications: Current Medications Generic Name Dose Route Start Last Admin Trade Name Freq PRN Reason Stop Dose Admin Acetaminophen 650 mg 03/23/21 17:02 03/23/21 21:20 Acetaminophen 325 Mg Tablet PO 650 mg Q4HR PRN Administration Pain 1 to 4 Heparin Sodium (Porcine) 5,000 unit 03/23/21 21:00 03/24/21 08:53 Heparin 5,000 Unit/Ml Vial SUBQ 5,000 unit BID DEBBIE Administration Sodium Chloride 1,000 mls @ 100 mls/hr 03/23/21 18:00 03/24/21 04:37 Normal Saline 0.9% IV 100 mls/hr .Q10H DEBBIE Administration Loperamide HCl 2 mg 03/23/21 20:30 03/24/21 06:44 Loperamide 2 Mg Capsule PO 2 mg QID PRN Administration Diarrhea Loratadine 10 mg 03/24/21 09:00 03/24/21 08:52 Loratadine 10 Mg Tablet PO 10 mg DAILY DEBBIE Administration Mineral Oil 1 applic 03/23/21 18:59 03/23/21 21:20 Min Oil/Dimethicon/Coconut Oil 92 Gm Tube TOP 1 applic PRN PRN Administration Skin Care Phenytoin Sodium 100 mg 03/24/21 09:00 03/24/21 08:52 Phenytoin Er 100 Mg Capsule PO 100 mg DAILY DEBBIE Administration Sodium Chloride 10 ml 03/24/21 01:00 03/24/21 08:52 Sodium Chloride Flush 0.9% 10 Ml Syringe IVP Not Given 0100,0900,1700 DEBBIE Solifenacin 5 mg 03/24/21 09:00 03/24/21 08:52 Solifenacin Succinate 5 Mg Tablet PO 5 mg DAILY DEBBIE Administration Objective - Vital Signs/Intake & Output Vital Signs: Vital Signs x48h Temp Pulse Resp BP Pulse Ox 03/24/21 07:21 36.6 C 59 L 18 117/62 100 Intake & Output: Intake & Output 08/2603/22/21 03/23/21 03/24/21 23:59 23:59 23:59 23:59 Intake Total 4000 1340 Output Total 220 Balance 4000 1120 - Objective General Appearance: positive: No acute distress, Alert, Mild distress Eyes Bilateral: positive: Normal inspection ENT: positive: ENT inspection nml Neck: positive: Nml inspection Respiratory: positive: Chest non-tender, No respiratory distress, Breath sounds nml Cardiovascular: positive: Regular rate & rhythm, No murmur, No gallop Abdomen: positive: Non-tender, No organomegaly, Nml bowel sounds Skin: positive: Color nml Extremities: positive: No pedal edema Neurologic/Psychiatric: positive: CN's nml (2-12), Motor nml, Mood/affect nml, Disoriented to time. negative: Disoriented to person, Disoriented to place, Facial droop - Lab Results Fish Bones: 03/24/21 06:42 03/24/21 06:42 Other Labs: Lab Results x24hrs 03/24/21 03/24/21 03/23/21 Range/Units 06:42 06:42 17:20 WBC 14.2 H (4.8-10.8) x10^3/uL RBC 3.85 L (4.70-6.10) 10^6/uL Hgb 12.1 L (14.0-18.0) g/dL Hct 36.3 L (42.0-52.0) % MCV 94.3 H (80.0-94.0) fL MCH 31.4 H (27.0-31.0) pg MCHC 33.3 (32.0-36.0) g/dL RDW 13.6 (12.0-15.0) % Plt Count 152 (130-450) 10^3/uL MPV 9.9 (7.4-11.4) fL Neut # (Auto) (1.5-6.6) 10^3/uL Lymph # (Auto) (1.5-3.5) 10^3/uL [place] # (Auto) (0.0-1.0) 10^3/uL Eos # (Auto) (0.0-0.7) 10^3/uL Baso # (Auto) (0.0-0.1) 10^3/uL Absolute Nucleated RBC x10^3/uL Band Neuts % (Manual) Abnorm Lymph % (Manual) Nucleated RBC % /100WBC Neutrophils # (Manual) Lymphocytes # (Manual) Monocytes # (Manual) Eosinophils # (Manual) Basophils # (Manual) Differential Comment Platelet Estimate (NORMAL) Platelet Morphology (NORMAL) RBC Morph Micro Appear (NORMAL) Sodium 138 (135-145) mmol/L Potassium 3.5 (3.5-5.0) mmol/L Chloride 110 (101-111) mmol/L Carbon Dioxide 23 (21-32) mmol/L Anion Gap 5.0 L (6-13) BUN 26 H (6-20) mg/dL Creatinine 0.8 (0.6-1.2) mg/dL Estimated GFR (MDRD) 92 (>89) Glucose 98 (70-100) mg/dL Calcium 7.5 L (8.5-10.3) mg/dL Total Bilirubin (0.2-1.0) mg/dL AST (10-42) IU/L ALT (10-60) IU/L Alkaline Phosphatase (42-121) IU/L Total Protein (6.7-8.2) g/dL Albumin (3.2-5.5) g/dL Globulin (2.1-4.2) g/dL Albumin/Globulin Ratio (1.0-2.2) Lipase (22-51) U/L Urine Color Urine Clarity (CLEAR) Urine pH (5.0-7.5) PH Ur Specific [place] (1.002-1.030) Urine Protein (NEGATIVE) mg/dL Urine Glucose (UA) (NEGATIVE) mg/dL Urine Ketones (NEGATIVE) mg/dL Urine Occult Blood (NEGATIVE) Urine Nitrite (NEGATIVE) Urine Bilirubin (NEGATIVE) Urine Urobilinogen (NORMAL) E.U./dL Ur Leukocyte Esterase (NEGATIVE) Ur Microscopic Review Urine Culture Comments Nasal Adenovirus (PCR) NOT DETECTED Nasal B. parapertussis DNA (PCR) NOT DETECTED Nasal Coronavir 229E PCR NOT DETECTED Nasal Coronavir HKU1 PCR NOT DETECTED Nasal Coronavir NL63 PCR NOT DETECTED Nasal Coronavir OC43 PCR NOT DETECTED Nasal Enterovir/Rhinovir PCR NOT DETECTED Nasal Influenza B PCR NOT DETECTED Nasal Influenza A PCR NOT DETECTED Nasal Parainfluen 1 PCR NOT DETECTED Nasal Parainfluen 2 PCR NOT DETECTED Nasal Parainfluen 3 PCR NOT DETECTED Nasal Parainfluen 4 PCR NOT DETECTED Nasal RSV (PCR) NOT DETECTED Nasal B.pertussis DNA PCR NOT DETECTED Nasal C.pneumoniae (PCR) NOT DETECTED Slava Human Metapneumo PCR NOT DETECTED Nasal M.pneumoniae (PCR) NOT DETECTED Nasal SARS-CoV-2 (PCR) NOT DETECTED Stl C. diff Tox B Gene (NEGATIVE) 03/23/21 03/23/21 03/23/21 Range/Units 16:20 16:10 11:17 WBC (4.8-10.8) x10^3/uL RBC (4.70-6.10) 10^6/uL Hgb (14.0-18.0) g/dL Hct (42.0-52.0) % MCV (80.0-94.0) fL MCH (27.0-31.0) pg MCHC (32.0-36.0) g/dL RDW (12.0-15.0) % Plt Count (130-450) 10^3/uL MPV (7.4-11.4) fL Neut # (Auto) (1.5-6.6) 10^3/uL Lymph # (Auto) (1.5-3.5) 10^3/uL [place] # (Auto) (0.0-1.0) 10^3/uL Eos # (Auto) (0.0-0.7) 10^3/uL Baso # (Auto) (0.0-0.1) 10^3/uL Absolute Nucleated RBC x10^3/uL Band Neuts % (Manual) Abnorm Lymph % (Manual) Nucleated RBC % /100WBC Neutrophils # (Manual) Lymphocytes # (Manual) Monocytes # (Manual) Eosinophils # (Manual) Basophils # (Manual) Differential Comment Platelet Estimate (NORMAL) Platelet Morphology (NORMAL) RBC Morph Micro Appear (NORMAL) Sodium 142 (135-145) mmol/L Potassium 4.2 (3.5-5.0) mmol/L Chloride 108 (101-111) mmol/L Carbon Dioxide 25 (21-32) mmol/L Anion Gap 9.0 (6-13) BUN 38 H (6-20) mg/dL Creatinine 1.2 (0.6-1.2) mg/dL Estimated GFR (MDRD) 58 L (>89) Glucose 108 H (70-100) mg/dL Calcium 8.6 (8.5-10.3) mg/dL Total Bilirubin 1.1 H (0.2-1.0) mg/dL AST 26 (10-42) IU/L ALT 14 (10-60) IU/L Alkaline Phosphatase 78 (42-121) IU/L Total Protein 6.1 L (6.7-8.2) g/dL Albumin 3.5 (3.2-5.5) g/dL Globulin 2.6 (2.1-4.2) g/dL Albumin/Globulin Ratio 1.3 (1.0-2.2) Lipase 17 L (22-51) U/L Urine Color YELLOW Urine Clarity CLEAR (CLEAR) Urine pH 5.5 (5.0-7.5) PH Ur Specific [place] >=1.030 H (1.002-1.030) Urine Protein TRACE (NEGATIVE) mg/dL Urine Glucose (UA) NEGATIVE (NEGATIVE) mg/dL Urine Ketones NEGATIVE (NEGATIVE) mg/dL Urine Occult Blood NEGATIVE (NEGATIVE) Urine Nitrite NEGATIVE (NEGATIVE) Urine Bilirubin NEGATIVE (NEGATIVE) Urine Urobilinogen 0.2 (NORMAL) (NORMAL) E.U./dL Ur Leukocyte Esterase NEGATIVE (NEGATIVE) Ur Microscopic Review NOT INDICATED Urine Culture Comments NOT INDICATED Nasal Adenovirus (PCR) Nasal B. parapertussis DNA (PCR) Nasal Coronavir 229E PCR Nasal Coronavir HKU1 PCR Nasal Coronavir NL63 PCR Nasal Coronavir OC43 PCR Nasal Enterovir/Rhinovir PCR Nasal Influenza B PCR Nasal Influenza A PCR Nasal Parainfluen 1 PCR Nasal Parainfluen 2 PCR Nasal Parainfluen 3 PCR Nasal Parainfluen 4 PCR Nasal RSV (PCR) Nasal B.pertussis DNA PCR Nasal C.pneumoniae (PCR) Slava Human Metapneumo PCR Nasal M.pneumoniae (PCR) Nasal SARS-CoV-2 (PCR) Stl C. diff Tox B Gene NEGATIVE (NEGATIVE) 03/23/21 Range/Units 10:38 WBC 23.8 H (4.8-10.8) x10^3/uL RBC 4.78 (4.70-6.10) 10^6/uL Hgb 15.1 (14.0-18.0) g/dL Hct 44.9 (42.0-52.0) % MCV 93.9 (80.0-94.0) fL MCH 31.6 H (27.0-31.0) pg MCHC 33.6 (32.0-36.0) g/dL RDW 13.5 (12.0-15.0) % Plt Count 192 (130-450) 10^3/uL MPV 10.0 (7.4-11.4) fL Neut # (Auto) 20.4 H (1.5-6.6) 10^3/uL Lymph # (Auto) 0.9 L (1.5-3.5) 10^3/uL [place] # (Auto) 2.4 H (0.0-1.0) 10^3/uL Eos # (Auto) 0.1 (0.0-0.7) 10^3/uL Baso # (Auto) 0.1 (0.0-0.1) 10^3/uL Absolute Nucleated RBC 0.00 x10^3/uL Band Neuts % (Manual) Not Reportable Abnorm Lymph % (Manual) Not Reportable Nucleated RBC % 0.0 /100WBC Neutrophils # (Manual) Not Reportable Lymphocytes # (Manual) Not Reportable Monocytes # (Manual) Not Reportable Eosinophils # (Manual) Not Reportable Basophils # (Manual) Not Reportable Differential Comment MANUAL=AUTO DIFF Platelet Estimate NORMAL (130-450,000) (NORMAL) Platelet Morphology NORMAL APPEARANCE (NORMAL) RBC Morph Micro Appear NORMAL APPEARANCE (NORMAL) Sodium (135-145) mmol/L Potassium (3.5-5.0) mmol/L Chloride (101-111) mmol/L Carbon Dioxide (21-32) mmol/L Anion Gap (6-13) BUN (6-20) mg/dL Creatinine (0.6-1.2) mg/dL Estimated GFR (MDRD) (>89) Glucose (70-100) mg/dL Calcium (8.5-10.3) mg/dL Total Bilirubin (0.2-1.0) mg/dL AST (10-42) IU/L ALT (10-60) IU/L Alkaline Phosphatase (42-121) IU/L Total Protein (6.7-8.2) g/dL Albumin (3.2-5.5) g/dL Globulin (2.1-4.2) g/dL Albumin/Globulin Ratio (1.0-2.2) Lipase (22-51) U/L Urine Color Urine Clarity (CLEAR) Urine pH (5.0-7.5) PH Ur Specific [place] (1.002-1.030) Urine Protein (NEGATIVE) mg/dL Urine Glucose (UA) (NEGATIVE) mg/dL Urine Ketones (NEGATIVE) mg/dL Urine Occult Blood (NEGATIVE) Urine Nitrite (NEGATIVE) Urine Bilirubin (NEGATIVE) Urine Urobilinogen (NORMAL) E.U./dL Ur Leukocyte Esterase (NEGATIVE) Ur Microscopic Review Urine Culture Comments Nasal Adenovirus (PCR) Nasal B. parapertussis DNA (PCR) Nasal Coronavir 229E PCR Nasal Coronavir HKU1 PCR Nasal Coronavir NL63 PCR Nasal Coronavir OC43 PCR Nasal Enterovir/Rhinovir PCR Nasal Influenza B PCR Nasal Influenza A PCR Nasal Parainfluen 1 PCR Nasal Parainfluen 2 PCR Nasal Parainfluen 3 PCR Nasal Parainfluen 4 PCR Nasal RSV (PCR) Nasal B.pertussis DNA PCR Nasal C.pneumoniae (PCR) Slava Human Metapneumo PCR Nasal M.pneumoniae (PCR) Nasal SARS-CoV-2 (PCR) Stl C. diff Tox B Gene (NEGATIVE) Assessment/Plan - Problem List (1) Diarrhea Impression: Diarrhea seems to have improved C. difficile is negative Remainder of stool studies are pending WBC has decreased from 23-14 despite no systemic antibiotics Abdominal exam is benign which favors Lack of significant colitis or other Cont to trend labs, f/u stool studies Cont Immodium Qualifiers: Diarrhea type: presumed infectious Qualified Code(s): R19.7 - Diarrhea, unspecified (2) Leukocytosis Impression: Improving, as above (3) Weakness Impression: Still very weak 2/2 diarrhea Will f/u PT eval (4) Dehydration Impression: Improving, cont IVF as pt has had poor PO intake
--- NOTE | 2021-03-24 15:53 | PHARMACY PROGRESS NOTE ---
- Best Possible Medication History Admit Date and Time: 03/23/21 1702 Processed by: Pharmacy Medication History completed: Yes Patient Interview: Pt unable to participate Secondary Source(s): Spouse/Significant other, Pharmacy records, Insurance re cords Patient unable to provide medication history. I called his , Maki, and she was able to clarify which medications the patient takes. As the person ultimately responsible for medication therapy, providers are able to order a medication from an existing home medication list in [facility] via the "Reconcile Routine" prior to Confirmation of that medication by landing support specialist. Such practice is discouraged except when the physician, in their clinical judgment, deems that a medical need exists for a medication without regard to previous use.
[2021-03-24] MEDS: ONDANSETRON 4 MG/2 ML VIAL IVP PRN (21:45)
[2021-03-24] MEDS: HYDROcod/ACETAM 5/325 MG TABLET PO PRN (21:47)
[2021-03-25 05:50] LABS: HCT - HEMATOCRIT 34.1 % (42.0-52.0); HGB - HEMOGLOBIN 11.5 g/dL (14.0-18.0); MEAN CORPUSCULAR HEMOGLOBIN 31.7 pg (27.0-31.0); MEAN CORPUSCULAR HGB CONC 33.7 g/dL (32.0-36.0); MEAN CORPUSCULAR VOLUME 93.9 fL (80.0-94.0); MEAN PLATELET VOLUME 9.9 fL (7.4-11.4); RED BLOOD COUNT 3.63 10^6/uL (4.70-6.10); RED CELL DISTRIBUTION WIDTH 13.6 % (12.0-15.0); WHITE BLOOD COUNT 9.9 x10^3/uL (4.8-10.8)
[2021-03-25] MEDS: ONDANSETRON 4 MG/2 ML VIAL IVP PRN (05:56)
[2021-03-25] MEDS: HYDROcod/ACETAM 5/325 MG TABLET PO PRN (05:56)
[2021-03-25 06:01] LABS: CALCIUM 7.5 mg/dL (8.5-10.3); CREATININE 0.9 mg/dL (0.6-1.2); POTASSIUM 3.2 mmol/L (3.5-5.0)
[2021-03-25] MEDS ORDERED: POTASSIUM CHLORIDE 20 MEQ TABLET PO ONE (08:12)
[2021-03-25] MEDS: HEPARIN 5,000 UNIT/ML VIAL SUBQ SCH ×2 (08:41→20:21)
[2021-03-25] MEDS: LORATADINE 10 MG TABLET PO SCH (08:41)
[2021-03-25] MEDS: SODIUM CHLORIDE FLUSH 0.9% 10 ML SYRINGE IVP SCH ×3 (08:42→23:33)
[2021-03-25] MEDS: SODIUM CHLORIDE 0.9% 1,000 ML IV SCH (08:42)
[2021-03-25] MEDS: SOLIFENACIN SUCCINATE 5 MG TABLET PO SCH (10:03)
--- NOTE | 2021-03-25 12:36 | PROVIDER PROGRESS NOTE ---
Subjective - Prog Note Date Prog Note Date: 03/25/21 Prog Note Time: 12:34 - Subjective Pt reports feeling: Improved Subjective: Patient is unsure how much diarrhea he has had.Memory deficits prohibit him from providing much subjective context. Current Medications - Current Medications Current Medications: Current Medications Generic Name Dose Route Start Last Admin Trade Name Freq PRN Reason Stop Dose Admin Acetaminophen 650 mg 03/23/21 17:02 03/23/21 21:20 Acetaminophen 325 Mg Tablet PO 650 mg Q4HR PRN Administration Pain 1 to 4 Hydrocodone Bitart/Acetaminophen 1 tab 03/23/21 17:02 03/25/21 05:56 Hydrocod/Acetam 5/325 Mg Tablet PO 1 tab Q4HR PRN Administration Pain 5 to 7 Heparin Sodium (Porcine) 5,000 unit 03/23/21 21:00 03/25/21 08:41 Heparin 5,000 Unit/Ml Vial SUBQ 5,000 unit BID DEBBIE Administration Sodium Chloride 1,000 mls @ 100 mls/hr 03/23/21 18:00 03/25/21 08:42 Normal Saline 0.9% IV 100 mls/hr .Q10H DEBBIE Administration Loperamide HCl 2 mg 03/23/21 20:30 03/24/21 16:06 Loperamide 2 Mg Capsule PO 2 mg QID PRN Administration Diarrhea Loratadine 10 mg 03/24/21 09:00 03/25/21 08:41 Loratadine 10 Mg Tablet PO 10 mg DAILY DEBBIE Administration Mineral Oil 1 applic 03/23/21 18:59 03/23/21 21:20 Min Oil/Dimethicon/Coconut Oil 92 Gm Tube TOP 1 applic PRN PRN Administration Skin Care Ondansetron HCl 4 mg 03/23/21 17:02 03/25/21 05:56 Ondansetron 4 Mg/2 Ml Vial IVP 4 mg Q6HR PRN Administration Nausea / Vomiting Sodium Chloride 10 ml 03/23/21 17:02 03/24/21 21:45 Sodium Chloride Flush 0.9% 10 Ml Syringe IVP 10 ml PRN PRN Administration NEEDED PER PROVIDER ORDERS Sodium Chloride 10 ml 03/24/21 01:00 03/25/21 08:42 Sodium Chloride Flush 0.9% 10 Ml Syringe IVP Not Given 0100,0900,1700 DEBBIE Solifenacin 5 mg 03/24/21 09:00 03/25/21 10:03 Solifenacin Succinate 5 Mg Tablet PO 5 mg DAILY DEBBIE Administration Objective - Vital Signs/Intake & Output Reviewed Vital Signs: Yes Vital Signs: Vital Signs x48h Temp Pulse Pulse Resp BP BP Pulse Ox 03/25/21 10:21 70 128/70 03/25/21 07:47 36.5 C 67 23 112/67 95 Pulse Ox 03/25/21 10:21 98 03/25/21 07:47 Intake & Output: Intake & Output 03/22/21 03/23/21 03/24/21 03/25/21 23:59 23:59 23:59 23:59 Intake Total 4000 3758.333 1600 Output Total 370 400 Balance 4000 3388.333 1200 - Objective General Appearance: positive: No acute distress Eyes Bilateral: positive: Normal inspection ENT: positive: ENT inspection nml, Pharynx nml, No signs of dehydration Neck: positive: Nml inspection, Thyroid nml, No JVD Cardiovascular: positive: Regular rate & rhythm, No murmur, No gallop Abdomen: positive: Non-tender, No organomegaly, Nml bowel sounds Skin: positive: Color nml Extremities: positive: Nml appearance Neurologic/Psychiatric: positive: CN's nml (2-12), Mood/affect nml, Disoriented to place. negative: Disoriented to person, Disoriented to time, Slurred/abnml speech - Lab Results Fish Bones: 03/25/21 05:29 03/25/21 05:29 Other Labs: Lab Results x24hrs 03/25/21 03/25/21 Range/Units 05:29 05:29 WBC 9.9 (4.8-10.8) x10^3/uL RBC 3.63 L (4.70-6.10) 10^6/uL Hgb 11.5 L (14.0-18.0) g/dL Hct 34.1 L (42.0-52.0) % MCV 93.9 (80.0-94.0) fL MCH 31.7 H (27.0-31.0) pg MCHC 33.7 (32.0-36.0) g/dL RDW 13.6 (12.0-15.0) % Plt Count 145 (130-450) 10^3/uL MPV 9.9 (7.4-11.4) fL Sodium 138 (135-145) mmol/L Potassium 3.2 L (3.5-5.0) mmol/L Chloride 110 (101-111) mmol/L Carbon Dioxide 23 (21-32) mmol/L Anion Gap 5.0 L (6-13) BUN 16 (6-20) mg/dL Creatinine 0.9 (0.6-1.2) mg/dL Estimated GFR (MDRD) 80 L (>89) Glucose 94 (70-100) mg/dL Calcium 7.5 L (8.5-10.3) mg/dL ABX Reporting Has patient been on IV antibiotics over the past 48 hours?: No Assessment/Plan - Problem List (1) Diarrhea Impression: Improving. C. difficile negative Remainder of stool studies still pending WBC now normal Qualifiers: Diarrhea type: presumed infectious Qualified Code(s): R19.7 - Diarrhea, uns pecified (2) Leukocytosis Impression: Resolved, without the use of antibiotics Most likely reactive leukocytosis from the diarrhea which is itself now signif icantly improved (3) Weakness Impression: Still continues to be quite weak require significant amount of assistance. PT prashanth reviewed, recommending [facility] facility [facility]. Appreciate assistance, continue to work towards discharge if he improves versus placement if this can be arranged sooner (4) Dehydration Impression: Resolved DC IV fluids
[2021-03-25] MEDS: LACTOBACILLUS RHAMNOSUS GG CAPSULE PO SCH (17:00)
[2021-03-25] MEDS: MULTIVITAMIN W/MINERALS TABLET PO SCH (17:00)
[2021-03-25] MEDS: LOPERAMIDE 2 MG CAPSULE PO PRN (17:00)
[2021-03-26 07:52] LABS: BASOPHILS % (AUTO) 0.4 %; EOSINOPHILS # (AUTO) 0.2 10^3/uL (0.0-0.7); EOSINOPHILS % (AUTO) 2.3 %; HCT - HEMATOCRIT 39.4 % (42.0-52.0); HGB - HEMOGLOBIN 13.1 g/dL (14.0-18.0); LYMPHOCYTES # (AUTO) 1.1 10^3/uL (1.5-3.5); LYMPHOCYTES % (AUTO) 13.4 %; MEAN CORPUSCULAR HEMOGLOBIN 31.4 pg (27.0-31.0); MEAN CORPUSCULAR HGB CONC 33.2 g/dL (32.0-36.0); MEAN CORPUSCULAR VOLUME 94.5 fL (80.0-94.0); MEAN PLATELET VOLUME 9.6 fL (7.4-11.4); MONOCYTES # (AUTO) 0.7 10^3/uL (0.0-1.0); NEUTROPHILS # (AUTO) 6.3 10^3/uL (1.5-6.6); NEUTROPHILS % (AUTO) 75.3 %; PLT - PLATELET COUNT 182 10^3/uL (130-450); RED BLOOD COUNT 4.17 10^6/uL (4.70-6.10); RED CELL DISTRIBUTION WIDTH 13.5 % (12.0-15.0); WHITE BLOOD COUNT 8.3 x10^3/uL (4.8-10.8)
[2021-03-26 08:00] LABS: CREATININE 0.9 mg/dL (0.6-1.2); POTASSIUM 3.4 mmol/L (3.5-5.0)
[2021-03-26] MEDS: MULTIVITAMIN W/MINERALS TABLET PO SCH (08:05)
[2021-03-26 08:18] VITALS: BP 140/69
[2021-03-26] MEDS: SOLIFENACIN SUCCINATE 5 MG TABLET PO SCH (08:49)
[2021-03-26] MEDS: LORATADINE 10 MG TABLET PO SCH (08:49)
[2021-03-26] MEDS: LACTOBACILLUS RHAMNOSUS GG CAPSULE PO SCH (08:49)
[2021-03-26] MEDS: SODIUM CHLORIDE FLUSH 0.9% 10 ML SYRINGE IVP SCH (08:50)
[2021-03-26] MEDS: HEPARIN 5,000 UNIT/ML VIAL SUBQ SCH (08:52)
[2021-03-26] MEDS ORDERED: POTASSIUM CHLORIDE 20 MEQ/15 ML UDC PO SCH (09:00)
[2021-03-26] MEDS: ACETAMINOPHEN 325 MG TABLET PO PRN (09:07)
--- NOTE | 2021-03-26 10:34 | Discharge Plan ---
"Discharge Plan for SNF / RESIDENTIAL - Discharge Plan And Transition Orders Problem Reviewed?: Yes Disposition: 03 SNF DC/Xfer Condition: Stable Allergies and Adverse Reactions: Allergies Allergy/AdvReac Type Severity Reaction Status Date / Time alendronate sodium Allergy Severe Rash Verified 03/23/21 10:28 [From Fosamax] Penicillins Allergy Intermediate Rash/Itchin Verified 03/23/21 10:28 g hydrocodone AdvReac Intermediate Nausea Verified 03/23/21 10:28 Health Concerns: The patient was admitted to the floor for dehydration and generalized weakness secondary to diarrhea. His white count was initially quite elevated at 23,000 and there was concern for potential C. difficile and so he was started on oral vancomycin empirically. His C. difficile PCR came back negative. Stool cultures have been ordered and are pending. Given the negative C. difficile PCR, his oral vancomycin was discontinued. His white count improved on a daily basis and normalized within 48 hours. His diarrhea has also resolved and it is suspected that he probably had gastroenteritis as the cause of his diarrhea although as mentioned above, stool cultures are still pending. He was evaluated by physical therapy and it was noted that he is quite deconditioned physically and a prison facility is recommended. - SNF / RESIDENTIAL Transition Orders Admit to (Facility): [facility] Medicare Certification Statement: I certify that [facility] care is medically necessary on a continuing basis for any of the conditions for which she/he is receiving care during hospitalization. Notify PCP of admission and forward orders to primary provider for signature. Other Notification Orders: Call PCP immediately if patient develops dyspnea, chest pain/tightness or edema. Additional Bowel Program Orders: If no BM after 2 days, nurse may give M.O.M. 30ml PO PRN and/or ducolax Supp 1 PA and/or SHELTON 250mg P.O., and/or senna 1-2 tabs PO. On day 3 nurse may give repeat above order until residents constipation is resolved. Medication Orders: PLEASE REFER TO THE DISCHARGE MEDICATION LIST. - Medications New Prescriptions: Loperamide [Imodium] 2 mg PO QID PRN #10 cap PRN Reason: Diarrhea - Diet Type: Geriatric Texture: Regular Liquids: Thin - Therapies | Activity Therapy: Evaluation | Treat if indicated: PT, OT Follow Up: Will need follow-up with his primary care physician in 1 to 2 weeks."
--- NOTE | 2021-03-26 14:39 | DISCHARGE SUMMARY ---
Discharge Summary Admit Date: 03/23/21 Discharge Date: 03/26/21 Discharging Provider: Jamal Gonzalez Primary Care Provider: Nicolasa Sesay Code Status: Attempt Resuscitation Condition at Discharge: Stable Discharge Disposition: SNF DC/Xfer Discharge Facility Name: [facility] - DIAGNOSES Admission Diagnoses: Diarrhea Leukocytosis Weakness Dehydration Discharge Diagnoses with Status of Each Condition: Diarrhea - resolved Leukocytosis - resolved. Weakness - ongoing. Dehydration - resolved. - HPI History of Present Illness: H&P per Dr. Piedra: Patient is an 85-year-old male who is somewhat of a poor historian but per has had diarrhea for about a week or so. She states that it started approximately a week ago, and she called the [place] nurse line who advised him to start a brat diet after which it seems to have improved for about 2 days or so, however at eventually returned and has been ongoing now for the last 5 days with progressively worsening weakness, decreased p.o. intake, leading her to be unable to provide care for her . In the ER, his work-up was remarkable for leukocytosis with a WBC of 23,000. His vital signs are relatively unremarkable. He is alert and oriented to person and location but is otherwise somewhat confused.Despite the significant diarrhea he does not present with electrolyte disturbancesAnd a urinalysis is pending as it was difficult for patient to produce a urine sample. I did discuss with the patient's regarding CODE STATUS and she informs me that they have regrettably not had this conversation in any great depth and so for now she would like for him to be full code. - HOSPITAL COURSE Hospital Course: The patient was admitted to the floor for dehydration and generalized weakness secondary to diarrhea. His white count was initially quite elevated at 23,000 and there was concern for potential C. difficile and so he was started on oral vancomycin empirically. His C. difficile PCR came back negative. Stool cultures have been ordered and are pending. Given the negative C. difficile PCR, his oral vancomycin was discontinued. His white count improved on a daily basis and normalized within 48 hours. His diarrhea has also resolved and it is suspected that he probably had gastroenteritis as the cause of his diarrhea although as mentioned above, stool cultures are still pending. He was evaluated by physical therapy and it was noted that he is quite deconditioned physically and a [facility] facility is recommended. He is discharged to [facility] in a stable condition. - ALLERGIES Allergies/Adverse Reactions: Allergies Allergy/AdvReac Type Severity Reaction Status Date / Time alendronate sodium Allergy Severe Rash Verified 03/23/21 10:28 [From Fosamax] Penicillins Allergy Intermediate Rash/Itchin Verified 03/23/21 10:28 g hydrocodone AdvReac Intermediate Nausea Verified 03/23/21 10:28 - MEDICATIONS Home Medications: Ambulatory Orders Medication Instructions Recorded Confirmed Fluticasone [Flonase] 2 sprays GIO DAILY PRN #0 12/13/17 03/24/21 Loratadine [Claritin] 10 mg PO DAILY #0 12/13/17 03/23/21 Tolterodine Tartrate 2 mg PO DAILY 03/23/21 03/23/21 Naproxen 250 mg PO BID PRN 03/24/21 03/24/21 Loperamide [Imodium] 2 mg PO QID PRN #10 cap 03/26/21 - PHYSICAL EXAM AT DISCHARGE General Appearance: positive: No acute distress, Alert Eyes Bilateral: positive: Normal inspection, Conjunctivae nml ENT: positive: ENT inspection nml Neck: positive: Nml inspection Respiratory: positive: No respiratory distress. negative: Wheezes, Rales Cardiovascular: positive: Systolic murmur. negative: No murmur, Tachycardia, Bradycardia Abdomen: positive: Non-tender, No distention. negative: Tenderness Skin: positive: Warm, Dry Extremities: positive: No pedal edema Neurologic/Psychiatric: negative: Disoriented to person, Disoriented to place Physical Exam Other/Comments: Vital Signs - 24 hr 03/25/21 03/26/21 23:33 08:00 Temperature 37.2 C 36.4 C L Heart Rate [ 76 64 Brachial] Respiratory 20 18 Rate Blood Pressure 163/72 H 140/69 H [Right Brachial artery] O2 Saturation 93 94 Oxygen O2 Source Room air - LABS Result Diagrams: 03/26/21 07:46 03/26/21 07:46 - DIAGNOSTIC IMAGING Diagnostic Imaging Results: Final report reviewed - FOLLOW UP Follow Up: He will need follow-up with his primary care physician in 1 to 2 weeks. Stool cultures are still pending and will need to be followed up. - TIME SPENT Time Spent in Discharge (Minutes): 32
== END 2021-03-26 14:34 | DRG 392 ==
LOC: EDUNIT# → ED 10:15 → MS2 17:02
PROVIDERS: ADMIT Family Medicine Sports Medicine; ATTEND Internal Medicine
DX: R19.7 Diarrhea, unspecified (principal); N17.9 Acute kidney failure, unspecified; K52.9 Noninfective gastroenteritis and colitis, unspecified; D72.829 Elevated white blood cell count, unspecified; E86.0 Dehydration; Z20.822 Contact with and (suspected) exposure to COVID-19; R41.0 Disorientation, unspecified; R53.1 Weakness; G47.30 Sleep apnea, unspecified; G40.909 Epilepsy, unspecified, not intractable, without status epilepticus; N40.1 Benign prostatic hyperplasia with lower urinary tract symptoms; N39.498 Other specified urinary incontinence; R35.0 Frequency of micturition
CPT/HCPCS: 36415; 70450; 71045; 80048; 80053; 81003; 81599; 83690; 83993; 85025; 85027; 87329; 87493; 87631; 87798; 96360; 96361; 97162; 97166; 97530; 99285; A6250; A9270; 0202U; 81001; 87045; 87046; 87086

== ENCOUNTER 2021-03-30 02:05 | Outpatient (CLI) | payer MEDICARE, OTHER ==
[2021-03-30 10:26] LABS: BILIRUBIN,URINE NEGATIVE (NEGATIVE); GLUCOSE, URINE (UA) NEGATIVE (NEGATIVE); KETONES,URINE (UA) TRACE mg/dL (NEGATIVE); LEUKOCYTE ESTERASE, URINE NEGATIVE (NEGATIVE); NITRITE,URINE NEGATIVE (NEGATIVE); OCCULT BLOOD,URINE NEGATIVE (NEGATIVE); PROTEIN,URINE NEGATIVE (NEGATIVE); UROBILINOGEN,URINE 0.2 (NORMAL) E.U./dL (NORMAL)
[2021-03-30 10:52] LABS: CLARITY,URINE CLEAR (CLEAR)
[2021-03-30 11:36] LABS: BACTERIA,URINE Few /HPF (None Seen); RBC,URINE 0-5 /HPF (0-5); SQUAMOUS EPITHELIAL CELL,UR FEW Squamous (<= Few); WBC,URINE 0-3 /HPF (0-3)
== END 2021-03-30 23:59 | disposition home or self-care (01) ==
LOC: LAB.WCP 02:05
PROVIDERS: ATTEND Family Medicine
DX: N39.0 Urinary tract infection, site not specified (principal)
CPT/HCPCS: 81001; 87086

== ENCOUNTER 2021-03-30 07:00 | Outpatient (CLI) | payer MEDICARE, OTHER ==
[2021-03-30 17:09] LABS: BASOPHILS % (AUTO) 0.6 %; EOSINOPHILS # (AUTO) 0.1 10^3/uL (0.0-0.7); EOSINOPHILS % (AUTO) 1.2 %; HCT - HEMATOCRIT 38.8 % (42.0-52.0); HGB - HEMOGLOBIN 12.5 g/dL (14.0-18.0); LYMPHOCYTES # (AUTO) 1.1 10^3/uL (1.5-3.5); MEAN CORPUSCULAR HEMOGLOBIN 31.1 pg (27.0-31.0); MEAN CORPUSCULAR HGB CONC 32.2 g/dL (32.0-36.0); MEAN CORPUSCULAR VOLUME 96.5 fL (80.0-94.0); MEAN PLATELET VOLUME 9.4 fL (7.4-11.4); MONOCYTES # (AUTO) 0.7 10^3/uL (0.0-1.0); MONOCYTES % (AUTO) 9.2 %; NEUTROPHILS # (AUTO) 5.3 10^3/uL (1.5-6.6); NEUTROPHILS % (AUTO) 73.6 %; PLT - PLATELET COUNT 264 10^3/uL (130-450); RED BLOOD COUNT 4.02 10^6/uL (4.70-6.10); RED CELL DISTRIBUTION WIDTH 13.7 % (12.0-15.0); WHITE BLOOD COUNT 7.2 x10^3/uL (4.8-10.8)
[2021-03-30 17:59] LABS: CALCIUM 8.2 mg/dL (8.5-10.3); CREATININE 0.8 mg/dL (0.6-1.2); POTASSIUM 3.9 mmol/L (3.5-5.0)
== END 2021-03-30 23:59 | disposition home or self-care (01) ==
LOC: LAB.R 07:00
DX: E87.6 Hypokalemia (principal); N39.0 Urinary tract infection, site not specified
CPT/HCPCS: 80048; 81001; 85025; 87086

== ENCOUNTER 2021-04-03 09:18 | Outpatient (CLI) | payer MEDICARE, OTHER | END 2021-04-03 09:19 | disposition home or self-care (01) | LOC: LAB.R 09:18 | PROVIDERS: ATTEND Family Medicine | DX: A04.72 Enterocolitis due to Clostridium difficile, not specified as recurrent (principal) | CPT/HCPCS: 87493 ==

== ENCOUNTER 2021-04-19 13:05 | Outpatient (CLI) | payer MEDICARE, OTHER ==
[2021-04-19 13:31] LABS: ALBUMIN 2.8 g/dL (3.2-5.5); BILIRUBIN,TOTAL 0.4 mg/dL (0.2-1.0); CALCIUM 8.5 mg/dL (8.5-10.3); CREATININE 0.8 mg/dL (0.6-1.2); CRP - C-REACTIVE PROTEIN 2.1 mg/dL (0-1.0); TOTAL PROTEIN 5.6 g/dL (6.7-8.2)
== END 2021-04-19 13:06 | disposition home or self-care (01) ==
LOC: LAB.R 13:05
PROVIDERS: ATTEND Family Medicine
DX: R53.1 Weakness (principal); R63.4 Abnormal weight loss
CPT/HCPCS: 80053; 85025; 85651; 86140

== ENCOUNTER → 2021-04-22 | Outpatient (CLI) | payer MEDICARE, OTHER ==
[2021-04-22 20:55] LABS: BASOPHILS % (AUTO) 0.6 %; EOSINOPHILS # (AUTO) 0.1 10^3/uL (0.0-0.7); EOSINOPHILS % (AUTO) 0.9 %; HCT - HEMATOCRIT 39.9 % (42.0-52.0); HGB - HEMOGLOBIN 12.6 g/dL (14.0-18.0); LYMPHOCYTES # (AUTO) 2.2 10^3/uL (1.5-3.5); LYMPHOCYTES % (AUTO) 34.3 %; MEAN CORPUSCULAR HEMOGLOBIN 30.6 pg (27.0-31.0); MEAN CORPUSCULAR HGB CONC 31.6 g/dL (32.0-36.0); MEAN CORPUSCULAR VOLUME 96.8 fL (80.0-94.0); MEAN PLATELET VOLUME 8.7 fL (7.4-11.4); MONOCYTES # (AUTO) 0.8 10^3/uL (0.0-1.0); NEUTROPHILS # (AUTO) 3.3 10^3/uL (1.5-6.6); NEUTROPHILS % (AUTO) 51.9 %; PLT - PLATELET COUNT 263 10^3/uL (130-450); RED BLOOD COUNT 4.12 10^6/uL (4.70-6.10); RED CELL DISTRIBUTION WIDTH 14.6 % (12.0-15.0); WHITE BLOOD COUNT 6.4 x10^3/uL (4.8-10.8)
== END ==
LOC: LAB.R 08:00
PROVIDERS: ATTEND Family Medicine
DX: K52.89 Other specified noninfective gastroenteritis and colitis (principal)
CPT/HCPCS: 85025

== ENCOUNTER → 2021-05-09 | Outpatient (CLI) | payer MEDICARE, OTHER ==
[2021-05-09 19:02] LABS: BASOPHILS # (AUTO) 0.1 10^3/uL (0.0-0.1); BASOPHILS % (AUTO) 0.9 %; EOSINOPHILS # (AUTO) 0.1 10^3/uL (0.0-0.7); EOSINOPHILS % (AUTO) 1.7 %; HCT - HEMATOCRIT 39.3 % (42.0-52.0); LYMPHOCYTES # (AUTO) 2.8 10^3/uL (1.5-3.5); MEAN CORPUSCULAR HEMOGLOBIN 31.3 pg (27.0-31.0); MEAN CORPUSCULAR HGB CONC 30.5 g/dL (32.0-36.0); MEAN CORPUSCULAR VOLUME 102.3 fL (80.0-94.0); MEAN PLATELET VOLUME 9.4 fL (7.4-11.4); MONOCYTES # (AUTO) 0.8 10^3/uL (0.0-1.0); MONOCYTES % (AUTO) 10.9 %; NEUTROPHILS # (AUTO) 3.1 10^3/uL (1.5-6.6); NEUTROPHILS % (AUTO) 45.2 %; PLT - PLATELET COUNT 248 10^3/uL (130-450); RED BLOOD COUNT 3.84 10^6/uL (4.70-6.10); RED CELL DISTRIBUTION WIDTH 16.7 % (12.0-15.0); WHITE BLOOD COUNT 6.9 x10^3/uL (4.8-10.8)
[2021-05-09 19:04] LABS: ALBUMIN 3.2 g/dL (3.2-5.5); ALBUMIN/GLOBULIN RATIO 1.1 (1.0-2.2); ALKALINE PHOSPHATASE 64 IU/L (42-121); ALT ALANINE AMINOTRANSFERASE < 10 IU/L (10-60); AST ASPARTATE AMINOTRANSFERASE 17 IU/L (10-42); BILIRUBIN,TOTAL 0.6 mg/dL (0.2-1.0); BUN - BLOOD UREA NITROGEN 27 mg/dL (6-20); CALCIUM 8.6 mg/dL (8.5-10.3); CARBON DIOXIDE - CO2 26 mmol/L (21-32); CHLORIDE 103 mmol/L (101-111); CREATININE 0.7 mg/dL (0.6-1.2); GFR - MDRD 107 (>89); GLUCOSE 132 mg/dL (70-100); POTASSIUM 3.8 mmol/L (3.5-5.0); SODIUM 138 mmol/L (135-145); TOTAL PROTEIN 6.1 g/dL (6.7-8.2)
== END ==
LOC: LAB.R 08:00
PROVIDERS: ATTEND Family Medicine
DX: R63.4 Abnormal weight loss (principal)
CPT/HCPCS: 80053; 85025

== ENCOUNTER 2021-05-17 08:00 | Outpatient (CLI) | payer MEDICARE, OTHER ==
[2021-05-17 17:33] LABS: CREATININE 0.8 mg/dL (0.6-1.2)
== END 2021-05-17 08:01 | disposition home or self-care (01) ==
LOC: LAB 08:00
PROVIDERS: ATTEND Surgery
DX: K52.9 Noninfective gastroenteritis and colitis, unspecified (principal)
CPT/HCPCS: 36415; 82565

== ENCOUNTER 2021-05-23 08:05 | Outpatient (CLI) | payer MEDICARE, OTHER ==
[2021-05-23] MEDS ORDERED: IOVERSOL 320 100 ML VIAL IVP ONE (08:12)
[2021-05-23] MEDS ORDERED: IOVERSOL 320 50 ML VIAL ONE (08:12)
[2021-05-23] MEDS: IOVERSOL 320 100 ML VIAL IVP ONE (22:25)
[2021-05-23] MEDS: IOVERSOL 320 50 ML VIAL PO ONE (22:26)
--- NOTE | 2021-05-27 22:53 | CT Report ---
PROCEDURE: Abdomen/Pelvis W INDICATIONS: ACUTE COLITIS CONTRAST: IV CONTRAST: Optiray 320 ml: 100 PO CONTRAST: Optiray 320 ml50 TECHNIQUE: After the administration of oral and intravenous contrast, 5 mm thick sections acquired from the diap hragms to the symphysis. 5 mm thick coronal and sagittal reformats were acquired. For radiation dos e reduction, the following was used: automated exposure control, adjustment of mA and/or kV accordin g to patient size. COMPARISON: CT abdomen and pelvis without contrast report, 08/26/2017. FINDINGS: Image quality: Excellent. ABDOMEN: Lung bases: There are respiratory motion artifacts. Lung bases are clear. Heart size is normal. Ther e is severe coronary artery calcification. Solid organs: Liver and spleen are normal in size and enhancement. Calcified nodules in liver and s pleen are compatible with old granulomas. Gallbladder is normal. Biliary system is non dilated. Perez creas enhances normally. There is a 0.6 mm cyst in the body of the pancreas. No adrenal nodules. Ki dneys demonstrate normal size and enhancement, without hydronephrosis. Peritoneum and bowel: Bowel loops demonstrate normal wall thickness and caliber. There is a large a mount of stool in colon. No free fluid or air. Nodes and vessels: No retroperitoneal or mesenteric adenopathy by size criteria. Aorta and inferior vena cava are normal in size. Severe atherosclerotic calcifications. Miscellaneous: No ventral hernias. PELVIS: Genitourinary: Bladder wall is mildly thickened concentrically. Miscellaneous: No inguinal hernias or adenopathy. Bones: No suspicious bony lesions. No vertebral body compression fractures. Severe scoliosis and de generative changes in lumbar spine. IMPRESSION: 1. No CT findings to suggest acute colitis or diverticulitis. 2. Large amount of stool in colon. 3. Mild concentric thickening of urinary bladder suspicious for cystitis. 4. Remote granulomatous disease in the liver and spleen. 5. A 0.6 cm cystic mass in the body of pancreas. Differential diagnoses include benign cyst versus lo w-grade malignancy such as IPMN. A pancreatic protocol CT or MRI is suggested for follow-up. 6. Severe coronary artery calcification and aortic calcification consistent with atherosclerosis. Reviewed by: Christianne Carbajal MD on 05/27/2021 10:52 PM PDT Approved by: Christianne Carbajal MD on 05/27/2021 10:52 PM PDT Station ID: [id number]
== END 2021-05-23 08:06 | disposition home or self-care (01) ==
LOC: DI 08:05
PROVIDERS: ATTEND Surgery
DX: K52.9 Noninfective gastroenteritis and colitis, unspecified (principal); K75.3 Granulomatous hepatitis, not elsewhere classified; K86.2 Cyst of pancreas
CPT/HCPCS: 74177; Q9967